=== PATIENT | male | born 1935 | race Caucasian/White ===

== ENCOUNTER 2018-06-14 09:20 | Inpatient (IN) | payer MEDICARE ==
[2018-06-14 10:02] VITALS: BP 144/73
[2018-06-14] MEDS ORDERED: Maalox 30 mL Cup PO PRN (10:13)
[2018-06-14] MEDS ORDERED: Magnesium Hydroxide (MOM) 30 mL UDC PO PRN (10:13)
[2018-06-14] MEDS ORDERED: Pneumococcal Vaccine 0.5 mL Vial IM ONE (11:28)
[2018-06-14 12:24] LABS: CHOLESTEROL 123 mg/dL (<200); HDL -HIGH DENSITY LIPOPROTEIN 46 mg/dL (23-92); TRIGLYCERIDES 82 mg/dL (<150)
--- NOTE | 2018-06-14 18:21 | Consultation ---
DATE OF CONSULTATION: INTERNAL MEDICINE CONSULTATION REFERRING PHYSICIAN: Dr. Polo. REASON FOR CONSULT: Medical management. HISTORY OF PRESENT ILLNESS: The patient is an 82-year-old male with history of combat related PTSD, dementia, history of ETOH, subclinical hypothyroidism, BPH, hyperlipidemia, who was seen at [facility] for psych decompensation. The patient apparently had exacerbation of his PTSD and was also noted to have anterior neck lacerations, which have been sutured. Per records, he apparently had suicidal thoughts, which he currently denies. He states that he accidentally cut himself with a barbed wire. He is currently comfortable, lying in bed with no complaints. He is somewhat of a poor historian, stating that he has no medical problems. He has been admitted to [facility] for further management and care. PAST MEDICAL HISTORY: As noted above. PAST SURGICAL HISTORY: Denies. FAMILY HISTORY: Noncontributory to his admission. SOCIAL HISTORY: There is alcohol abuse per records. No cigarette smoking at this time, but the patient does have a longstanding history of previous cigarette smoking. He quit about 30 years ago. Denies illicit drug usage. ALLERGIES: NKDA. OUTPATIENT MEDICATIONS: Aspirin 81 every day, Aricept 10 every day, Cardura 2 mg at bedtime, Proscar 5 mg every day, Lasix 20 mg every day, Synthroid 0.025 mg daily, Namenda 5 mg daily and Remeron 30 mg at bedtime. REVIEW OF SYSTEMS: CONSTITUTIONAL: He denies any fever, chills. No recent weight loss. CARDIOVASCULAR: No chest pain or palpitations. PULMONARY: No cough, no phlegm production, no shortness of breath. GASTROINTESTINAL: No bowel habit changes. GENITOURINARY: No bladder habit changes. NEUROLOGIC: No changes in vision, no headaches. Denies any syncopal episodes. PHYSICAL EXAMINATION: VITAL SIGNS: Pulse 68, respirations 18, temperature 97.9, BP 144/73. GENERAL: A well-developed, well-nourished male, awake, in no obvious distress. HEAD AND NECK: The head is normocephalic, atraumatic. There are 2 large lacerations on the left anterior neck that appeared to have been done with a thin blade instrument. There are fine sutures in place. There is no noticeable bleeding. CARDIAC: Regular rate and rhythm without any murmurs. LUNGS: Diminished at the bases, but clear to auscultation bilaterally. ABDOMEN: Soft, supple, nontender, nondistended, normoactive bowel sounds. LOWER EXTREMITIES: No pedal edema. LABORATORY DATA: From I white count 7.4, H and H 13/39 with a platelet count of 164. Sodium 139, potassium 5.0, chloride 106, CO2 of 29, glucose 95, BUN 33, creatinine 1.5. UA was within normal limits. ASSESSMENT: 1. Acute psych decompensation. 2. History of combat related posttraumatic stress disorder. 3. Self-inflicted anterior neck laceration, status post closure with sutures. 4. Major depressive disorder. 5. Adjustment disorder. 6. Alzheimer dementia per history. 7. Essential hypertension. 8. Subclinical hypothyroidism. 9. Hyperlipidemia. 10. History of benign prostatic hypertrophy. PLAN: The patient has been admitted to the [facility] for management and care. The patient will be kept on his current medications as scheduled and will ask for a lipid panel in the a.m. JOB# [id number] [facility]
[2018-06-15] MEDS: Levothyroxine 0.025 Mg Tab PO SCH (06:31)
[2018-06-15] MEDS: Multivitamin Tab PO SCH (09:00)
[2018-06-15] MEDS: Aspirin 81mg Chewable Tab PO SCH (09:01)
--- NOTE | 2018-06-15 22:34 | Internal Medicine Prog Note ---
Internal Medicine Subjective - Subjective Service Date: 06/15/18 (NO MAJOR EVENTS REPORTED BY STAFF) Patient seen and examined:: chart reviewed Patient is:: awake Per staff patient has:: no adverse event Internal Medicine Objective - Results Recent Labs: Laboratory Last Values POC Glucose 109 MG/DL (70 - 105) H 06/14/18 11:22 Triglycerides 82 mg/dL (<150) 06/14/18 11:30 Cholesterol 123 mg/dL (<200) 06/14/18 11:30 LDL Cholesterol Direct 62 mg/dL (75-193) L 06/14/18 11:30 HDL Cholesterol 46 mg/dL (23-92) 06/14/18 11:30 TSH 4.87 uIU/ml (0.34-5.60) 06/14/18 11:30 - Physical Exam Vitals and I&O: Vital Signs Temp 98.2 F 06/15/18 20:00 Pulse 82 06/15/18 20:00 Resp 19 06/15/18 20:00 BP 85/49 06/15/18 20:00 Pulse Ox 93 06/15/18 20:00 Intake & Output 06/15/18 06/15/18 06/16/18 06:59 18:59 06:59 Intake Total 450 Balance 450 Intake: Oral 450 Other: # Voids 3 Active Medications: Current Medications Acetaminophen (Tylenol) 650 mg PO Q4HR PRN PRN Reason: Mild Pain / Temp above 100 Stop: 08/13/18 10:12 Al Hydrox/Mg Hydrox/Simethicone (Maalox) 30 ml PO Q4HR PRN PRN Reason: GI DISTRESS Stop: 08/13/18 10:12 Aspirin (Aspirin Chewable) 81 mg PO DAILY [facility] Stop: 08/14/18 08:59 Last Admin: 06/15/18 09:01 Dose: 81 mg Donepezil HCl (Aricept) 10 mg PO HS [facility] Stop: 08/13/18 20:59 Last Admin: 06/15/18 21:00 Dose: 10 mg Doxazosin Mesylate (Cardura) 8 mg PO HS [facility] Stop: 08/13/18 20:59 Last Admin: 06/15/18 21:00 Dose: 8 mg Escitalopram Oxalate (Lexapro) 10 mg PO HS [facility]; Protocol Stop: 08/14/18 20:59 Last Admin: 06/15/18 21:00 Dose: 10 mg Finasteride (Proscar) 5 mg PO DAILY [facility]; Protocol Stop: 08/14/18 08:59 Last Admin: 06/15/18 09:00 Dose: 5 mg Furosemide (Lasix) 20 mg PO DAILY [facility] Stop: 08/14/18 08:59 Last Admin: 06/15/18 09:01 Dose: 20 mg Levothyroxine Sodium (Synthroid) 0.025 mg PO QDAC [facility] Stop: 08/14/18 07:29 Last Admin: 06/15/18 06:31 Dose: 0.025 mg Lorazepam (Ativan) 0.5 mg PO Q4HR PRN; Protocol PRN Reason: Anxiety Stop: 08/13/18 10:21 Magnesium Hydroxide (Milk Of Magnesia) 30 ml PO HS PRN PRN Reason: Constipation Memantine (Namenda) 5 mg PO DAILY [facility] Stop: 08/14/18 08:59 Last Admin: 06/15/18 09:00 Dose: 5 mg Mirtazapine (Remeron) 30 mg PO HS [facility] Stop: 08/13/18 20:59 Last Admin: 06/15/18 21:00 Dose: 30 mg Multivitamins/Vitamin C (Theragran) 1 tab PO DAILY [facility] Stop: 08/14/18 08:59 Last Admin: 06/15/18 09:00 Dose: 1 tab Zolpidem Tartrate (Ambien) 5 mg PO HS PRN PRN Reason: Insomnia Stop: 08/13/18 10:12 General: alert HEENT: PERRLA, EOMI Neck: Supple, No JVD, No LAD, other Lungs: CTAB Cardiovascular: RRR, Normal S1, Normal S2, without murmur Abdomen: soft, non-tender, positive bowel sound Extremities: clear Internal Medicine Assmt/Plan - Assessment Assessment: ACUTE PSYCH DECOMPENSATION HX OF COMBAT RELATED POST TRAUMATIC STRESS SYNDROME HISTORY OF DEMENTIA WITH BEHAVIORAL D/O SELF INFLICTED NECK LACERATIONS-s/p sutures HX OF SUBCLINICAL HYPOTHYROIDISM HX OF HTN-stable. HX OF BPH HX OF ETOH-no s/sx of withdrawals - Plan Plan: CONT WITH CURRENT INPT PSYCH SUPPORTIVE CARE AND MGT CONT WITH SYNTHOID, F/U THYROID STUDIES CONT WITH ARICEPT/NAMENDA CONT WITH CARDURA/PROSCAR MONITOR BP
[2018-06-16] MEDS: Levothyroxine 0.025 Mg Tab PO SCH (06:40)
[2018-06-16] MEDS: Multivitamin Tab PO SCH (09:29)
[2018-06-16] MEDS: Aspirin 81mg Chewable Tab PO SCH (09:29)
--- NOTE | 2018-06-16 12:32 | Internal Medicine Prog Note ---
Internal Medicine Subjective - Subjective Service Date: 06/16/18 (NO EVENTS) Patient seen and examined:: without staff Patient is:: awake Per staff patient has:: no adverse event Internal Medicine Objective - Results Recent Labs: Laboratory Last Values POC Glucose 109 MG/DL (70 - 105) H 06/14/18 11:22 Triglycerides 82 mg/dL (<150) 06/14/18 11:30 Cholesterol 123 mg/dL (<200) 06/14/18 11:30 LDL Cholesterol Direct 62 mg/dL (75-193) L 06/14/18 11:30 HDL Cholesterol 46 mg/dL (23-92) 06/14/18 11:30 Free T4 0.91 ng/dL (0.82-1.77) 06/14/18 11:30 TSH 4.87 uIU/ml (0.34-5.60) 06/14/18 11:30 - Physical Exam Vitals and I&O: Vital Signs Temp 98.2 F 06/15/18 20:00 Pulse 82 06/15/18 20:00 Resp 19 06/15/18 20:00 BP 136/79 06/16/18 09:29 Pulse Ox 93 06/15/18 20:00 Active Medications: Current Medications Acetaminophen (Tylenol) 650 mg PO Q4HR PRN PRN Reason: Mild Pain / Temp above 100 Stop: 08/13/18 10:12 Al Hydrox/Mg Hydrox/Simethicone (Maalox) 30 ml PO Q4HR PRN PRN Reason: GI DISTRESS Stop: 08/13/18 10:12 Aspirin (Aspirin Chewable) 81 mg PO DAILY [facility] Stop: 08/14/18 08:59 Last Admin: 06/16/18 09:29 Dose: 81 mg Donepezil HCl (Aricept) 10 mg PO HS [facility] Stop: 08/13/18 20:59 Last Admin: 06/15/18 21:00 Dose: 10 mg Doxazosin Mesylate (Cardura) 8 mg PO HS [facility] Stop: 08/13/18 20:59 Last Admin: 06/15/18 21:00 Dose: 8 mg Escitalopram Oxalate (Lexapro) 10 mg PO HS [facility]; Protocol Stop: 08/14/18 20:59 Last Admin: 06/15/18 21:00 Dose: 10 mg Finasteride (Proscar) 5 mg PO DAILY [facility]; Protocol Stop: 08/14/18 08:59 Last Admin: 06/16/18 09:30 Dose: 5 mg Furosemide (Lasix) 20 mg PO DAILY [facility] Stop: 08/14/18 08:59 Last Admin: 06/16/18 09:29 Dose: 20 mg Levothyroxine Sodium (Synthroid) 0.025 mg PO QDAC [facility] Stop: 08/14/18 07:29 Last Admin: 06/16/18 06:40 Dose: 0.025 mg Lorazepam (Ativan) 0.5 mg PO Q4HR PRN; Protocol PRN Reason: Anxiety Stop: 08/13/18 10:21 Magnesium Hydroxide (Milk Of Magnesia) 30 ml PO HS PRN PRN Reason: Constipation Memantine (Namenda) 5 mg PO BID [facility] Stop: 08/15/18 08:59 Mirtazapine (Remeron) 15 mg PO HS [facility] Stop: 08/15/18 20:59 Multivitamins/Vitamin C (Theragran) 1 tab PO DAILY [facility] Stop: 08/14/18 08:59 Last Admin: 06/16/18 09:29 Dose: 1 tab Zolpidem Tartrate (Ambien) 5 mg PO HS PRN PRN Reason: Insomnia Stop: 08/13/18 10:12 General: alert HEENT: PERRLA, EOMI Neck: Supple, No JVD, No LAD, other Lungs: CTAB Cardiovascular: RRR, Normal S1, Normal S2, without murmur Abdomen: soft, non-tender, positive bowel sound Extremities: clear Neurological: no change Internal Medicine Assmt/Plan - Assessment Assessment: ACUTE PSYCH DECOMPENSATION 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 HX OF BPH HX OF ETOH-no s/sx of withdrawals - Plan Plan: CONT WITH CURRENT INPT PSYCH SUPPORTIVE CARE AND MGT CONT WITH SYNTHOID-adjusted. CONT WITH ARICEPT/NAMENDA CONT WITH CARDURA/PROSCAR MONITOR BP
--- NOTE | 2018-06-17 00:51 | Psychiatric Evaluation ---
DATE OF SERVICE: INITIAL EVALUATION AND MENTAL STATUS EXAM PATIENT'S AGE: 82. SEX: Male. PHYSICIAN: Dr. Polo. CHIEF COMPLAINT: Depression and suicidal attempt. HISTORY OF PRESENT ILLNESS: The patient is an 82-year-old male, who tried to kill himself by cutting his throat and the patient was in [facility] for treatment and got stitches in his neck. The patient has been depressed and has history of depression and has been taking Remeron, Aricept, and Namenda. During my interview, the patient is guarded and he did not answer much of the questions except "I am very depressed" and I do not know why. Otherwise, most of his questions was guarded and was with lack of information. PAST PSYCHIATRIC HISTORY: The patient has history of depression. PAST MEDICAL HISTORY: The patient has history of hypertension and dementia. SOCIAL HISTORY: The patient is and lives with his . He is retired. He has history of heavy drinking. Otherwise, no drug use. ALLERGIES: No known allergies. MENTAL STATUS EXAMINATION: The patient appears older than stated age. Sad affect. In a depressed mood. Cooperative. The patient denied any hallucinations or delusions. He admits suicidal ideations with plan, but denies any homicidal ideations. The patient is alert and oriented to time, place, person, and situation. Intact immediate, recent and remote memories. Fair insight, but poor judgment. Seems to be of average intelligence based on his verbal ability. ASSESSMENT: PRIMARY DIAGNOSIS: Major depression, severe, recurrent, without psychotic features. TREATMENT PLAN: We will monitor the patient closely because of his depression and suicidal ideations. We will start individual as well as milieu psychotherapy. We will monitor psychotropic medications. ESTIMATED LENGTH OF STAY: 5-7 days. THE PATIENT'S STRENGTHS AND WEAKNESSES: The patient's strength is not clear at this time except he has a family. Weakness is his ineffective coping and suicidal attempt. AFTER DISCHARGE PLAN: The patient most probably will return to his with outpatient treatment. CRITERIA FOR DISCHARGE: The patient will not be suicidal and we will stabilize psychotropic medications and we will establish outpatient treatment plans. [facility]# [id number]
--- NOTE | 2018-06-17 02:43 | Progress Notes ---
DATE: SUBJECTIVE: Chart reviewed and the patient interviewed. Also discussed the patient's condition with the staff and reviewed records and labs. The patient is still severely depressed and also seems to be preoccupied. The patient also is still feeling hopeless and helpless and "depressed." Also show psychomotor retardation and slow in his movements and needs to be monitored closely. Also, still have thoughts of suicide with plan to cut his throat. ASSESSMENT: The patient is still severely depressed. TREATMENT PLAN: We will add Lexapro in a dose of 10 mg at bedtime. Also, we will decrease Remeron to 15 mg at bedtime and will continue to follow up. JOB# [id number]
[2018-06-17] MEDS: Levothyroxine 0.05 Mg Tab PO SCH (06:47)
[2018-06-17] MEDS: Aspirin 81mg Chewable Tab PO SCH (08:53)
[2018-06-17] MEDS: Multivitamin Tab PO SCH (08:53)
--- NOTE | 2018-06-17 20:56 | Internal Medicine Prog Note ---
Internal Medicine Subjective - Subjective Service Date: 06/17/18 (no events) Patient seen and examined:: without staff Patient is:: awake Per staff patient has:: no adverse event Internal Medicine Objective - Results Recent Labs: Laboratory Last Values POC Glucose 109 MG/DL (70 - 105) H 06/14/18 11:22 Triglycerides 82 mg/dL (<150) 06/14/18 11:30 Cholesterol 123 mg/dL (<200) 06/14/18 11:30 LDL Cholesterol Direct 62 mg/dL (75-193) L 06/14/18 11:30 HDL Cholesterol 46 mg/dL (23-92) 06/14/18 11:30 Free T4 0.91 ng/dL (0.82-1.77) 06/14/18 11:30 TSH 4.87 uIU/ml (0.34-5.60) 06/14/18 11:30 - Physical Exam Vitals and I&O: Vital Signs Temp 98.3 F 06/17/18 14:00 Pulse 62 06/17/18 14:00 Resp 20 06/17/18 14:00 BP 110/64 06/17/18 14:00 Pulse Ox 96 06/17/18 14:00 Intake & Output 06/17/18 06/17/18 06/18/18 06:59 18:59 06:59 Intake Total 480 1000 Balance 480 1000 Intake: Oral 480 1000 Other: # Voids 1 4 # Bowel Movements 1 Active Medications: Current Medications Acetaminophen (Tylenol) 650 mg PO Q4HR PRN PRN Reason: Mild Pain / Temp above 100 Stop: 08/13/18 10:12 Al Hydrox/Mg Hydrox/Simethicone (Maalox) 30 ml PO Q4HR PRN PRN Reason: GI DISTRESS Stop: 08/13/18 10:12 Aripiprazole (Abilify) 5 mg PO DAILY [facility]; Protocol Stop: 08/17/18 08:59 Aspirin (Aspirin Chewable) 81 mg PO DAILY [facility] Stop: 08/14/18 08:59 Last Admin: 06/17/18 08:53 Dose: 81 mg Donepezil HCl (Aricept) 10 mg PO HS [facility] Stop: 08/13/18 20:59 Last Admin: 06/17/18 20:40 Dose: 10 mg Doxazosin Mesylate (Cardura) 8 mg PO HS [facility] Stop: 08/13/18 20:59 Last Admin: 06/17/18 20:40 Dose: 8 mg Escitalopram Oxalate (Lexapro) 10 mg PO HS [facility]; Protocol Stop: 08/14/18 20:59 Last Admin: 06/17/18 20:40 Dose: 10 mg Finasteride (Proscar) 5 mg PO DAILY [facility]; Protocol Stop: 08/14/18 08:59 Last Admin: 06/17/18 08:54 Dose: 5 mg Furosemide (Lasix) 20 mg PO DAILY [facility] Stop: 08/14/18 08:59 Last Admin: 06/17/18 08:54 Dose: 20 mg Levothyroxine Sodium (Synthroid) 0.05 mg PO QDAC [facility] Stop: 08/16/18 07:29 Last Admin: 06/17/18 06:47 Dose: 0.05 mg Lorazepam (Ativan) 0.5 mg PO Q4HR PRN; Protocol PRN Reason: Anxiety Stop: 08/13/18 10:21 Magnesium Hydroxide (Milk Of Magnesia) 30 ml PO HS PRN PRN Reason: Constipation Memantine (Namenda) 5 mg PO BID [facility] Stop: 08/15/18 08:59 Last Admin: 06/17/18 16:27 Dose: 5 mg Mirtazapine (Remeron) 15 mg PO HS [facility] Stop: 08/15/18 20:59 Last Admin: 06/17/18 20:40 Dose: 15 mg Multivitamins/Vitamin C (Theragran) 1 tab PO DAILY [facility] Stop: 08/14/18 08:59 Last Admin: 06/17/18 08:53 Dose: 1 tab Zolpidem Tartrate (Ambien) 5 mg PO HS PRN PRN Reason: Insomnia Stop: 08/13/18 10:12 Last Admin: 06/16/18 21:36 Dose: 5 mg General: alert HEENT: PERRLA, EOMI Neck: Supple, No JVD, No LAD, other Lungs: CTAB Cardiovascular: RRR, Normal S1, Normal S2, without murmur Abdomen: soft, non-tender, positive bowel sound Extremities: clear Neurological: no change Internal Medicine Assmt/Plan - Assessment Assessment: ACUTE PSYCH DECOMPENSATION 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 HX OF BPH HX OF ETOH-no s/sx of withdrawals - Plan Plan: CONT WITH CURRENT INPT PSYCH SUPPORTIVE CARE AND MGT CONT WITH SYNTHOID-adjusted. CONT WITH ARICEPT/NAMENDA CONT WITH CARDURA/PROSCAR MONITOR BP
--- NOTE | 2018-06-18 02:41 | Progress Notes ---
DATE: 06/17/[address] Polo. SUBJECTIVE: Case was discussed with staff of the patient and reviewed records. This is an 82-year-old male, who was admitted on 06/14/2018 because of depression and suicide attempt. He tried to kill himself by cutting his throat and the patient was in [facility]. He got stitches on his neck. Has been depressed with a history of depression. He is on Remeron, Aricept, Namenda. The patient was guarded and did not answer much of the questions and very depressed and do not why' otherwise, no suspicious, guarded. The patient also with a history of dementia. The patient continues to isolate himself, guarded. He is on Aricept 10 mg at bedtime, Lexapro 10 mg at bedtime and because of severity of her depression, I will be adding Abilify to his medication, also on Remeron as well as Namenda 5 mg twice a day. So Abilify will be added to help decrease his depressive symptoms. We will continue outpatient group therapy, milieu therapy, adjust the medication as needed. JOB# [id number]
[2018-06-18] MEDS: Levothyroxine 0.05 Mg Tab PO SCH (06:39)
[2018-06-18] MEDS: Aspirin 81mg Chewable Tab PO SCH (08:20)
[2018-06-18] MEDS: Multivitamin Tab PO SCH (08:20)
--- NOTE | 2018-06-18 20:25 | Progress Notes ---
DATE: 06/18/2018 DATE OF SERVICE: 06/18/2018 An 82-year-old male, tried to kill himself, cut his throat. It is clear where he cut his throat. He has stitches on his neck. Ongoing depression, isolation, melancholy. Noting he is feeling mildly better, no longer wanting to cut his neck, but feeling "despondent". Staff concerned because he isolates. He knows the year and not quite sure about the month. He would like to go back home with . Not exactly sure of the 's whereabouts. Fair sleep, fair appetite. MEDICATIONS: Noted. ASSESSMENT: The patient remains depressed, melancholic, ongoing concerns that he may try to hurt himself. We will continue to monitor. Continue inpatient hospitalization. JOB# [id number]
[2018-06-19] MEDS: Levothyroxine 0.05 Mg Tab PO SCH (06:52)
--- NOTE | 2018-06-19 08:39 | Progress Notes ---
DATE: 06/19/2018 DATE OF SERVICE: 06/19/2018 SUBJECTIVE: The patient is currently in the hospital, status post suicide attempt, preoccupied, generally confused, forgetful, states his is going to pick him up. Slept for about 6 hours, depressed, withdrawn, mostly keeps to himself, isolative, ongoing periods of forgetfulness, ongoing concerns that he may act out upon his impulses, harm self given that he is still depressed, withdrawn. We will continue to monitor. Concerns about safety. would like the patient back home with them. It seems that the is able to help take care of him, but he is generally independent. JOB# [id number]
[2018-06-19] MEDS: Multivitamin Tab PO SCH (09:25)
[2018-06-19] MEDS: Aspirin 81mg Chewable Tab PO SCH (09:25)
--- NOTE | 2018-06-19 17:07 | Internal Medicine Prog Note ---
Internal Medicine Subjective - Subjective Service Date: 06/19/18 (comfortable) Patient seen and examined:: without staff Patient is:: awake Per staff patient has:: no adverse event Internal Medicine Objective - Results Recent Labs: Laboratory Last Values POC Glucose 109 MG/DL (70 - 105) H 06/14/18 11:22 Triglycerides 82 mg/dL (<150) 06/14/18 11:30 Cholesterol 123 mg/dL (<200) 06/14/18 11:30 LDL Cholesterol Direct 62 mg/dL (75-193) L 06/14/18 11:30 HDL Cholesterol 46 mg/dL (23-92) 06/14/18 11:30 Free T4 0.91 ng/dL (0.82-1.77) 06/14/18 11:30 TSH 4.87 uIU/ml (0.34-5.60) 06/14/18 11:30 - Physical Exam Vitals and I&O: Vital Signs Temp 97.5 F 06/19/18 16:18 Pulse 66 06/19/18 16:18 Resp 20 06/19/18 16:18 BP 111/62 06/19/18 16:18 Pulse Ox 91 06/19/18 16:18 Intake & Output 06/18/18 06/19/18 06/19/18 18:59 06:59 18:59 Intake Total 900 120 Balance 900 120 Intake: Oral 900 120 Other: # Voids 3 3 # Bowel Movements 1 Active Medications: Current Medications Acetaminophen (Tylenol) 650 mg PO Q4HR PRN PRN Reason: Mild Pain / Temp above 100 Stop: 08/13/18 10:12 Al Hydrox/Mg Hydrox/Simethicone (Maalox) 30 ml PO Q4HR PRN PRN Reason: GI DISTRESS Stop: 08/13/18 10:12 Aripiprazole (Abilify) 5 mg PO DAILY [facility]; Protocol Stop: 08/17/18 08:59 Last Admin: 06/19/18 09:23 Dose: 5 mg Aspirin (Aspirin Chewable) 81 mg PO DAILY [facility] Stop: 08/14/18 08:59 Last Admin: 06/19/18 09:25 Dose: 81 mg Donepezil HCl (Aricept) 10 mg PO HS [facility] Stop: 08/13/18 20:59 Last Admin: 06/18/18 21:53 Dose: 10 mg Doxazosin Mesylate (Cardura) 8 mg PO HS [facility] Stop: 08/13/18 20:59 Last Admin: 06/18/18 21:54 Dose: 8 mg Escitalopram Oxalate (Lexapro) 10 mg PO HS [facility]; Protocol Stop: 08/14/18 20:59 Last Admin: 06/18/18 21:54 Dose: 10 mg Finasteride (Proscar) 5 mg PO DAILY [facility]; Protocol Stop: 08/14/18 08:59 Last Admin: 06/19/18 09:23 Dose: 5 mg Furosemide (Lasix) 20 mg PO DAILY [facility] Stop: 08/14/18 08:59 Last Admin: 06/19/18 09:24 Dose: 20 mg Levothyroxine Sodium (Synthroid) 0.05 mg PO QDAC [facility] Stop: 08/16/18 07:29 Last Admin: 06/19/18 06:52 Dose: 0.05 mg Lorazepam (Ativan) 0.5 mg PO Q4HR PRN; Protocol PRN Reason: Anxiety Stop: 08/13/18 10:21 Magnesium Hydroxide (Milk Of Magnesia) 30 ml PO HS PRN PRN Reason: Constipation Memantine (Namenda) 5 mg PO BID [facility] Stop: 08/15/18 08:59 Last Admin: 06/19/18 09:25 Dose: 5 mg Mirtazapine (Remeron) 15 mg PO HS [facility] Stop: 08/15/18 20:59 Last Admin: 06/18/18 21:54 Dose: 15 mg Multivitamins/Vitamin C (Theragran) 1 tab PO DAILY [facility] Stop: 08/14/18 08:59 Last Admin: 06/19/18 09:25 Dose: 1 tab Zolpidem Tartrate (Ambien) 5 mg PO HS PRN PRN Reason: Insomnia Stop: 08/13/18 10:12 Last Admin: 06/16/18 21:36 Dose: 5 mg General: alert HEENT: PERRLA, EOMI Neck: Supple, No JVD, No LAD, other Lungs: CTAB Cardiovascular: RRR, Normal S1, Normal S2, without murmur Abdomen: soft, non-tender, positive bowel sound Extremities: clear Neurological: no change Internal Medicine Assmt/Plan - Assessment Assessment: ACUTE PSYCH DECOMPENSATION 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 HX OF BPH HX OF ETOH-no s/sx of withdrawals - Plan Plan: CONT WITH CURRENT INPT PSYCH SUPPORTIVE CARE AND MGT CONT WITH SYNTHOID-adjusted. CONT WITH ARICEPT/NAMENDA CONT WITH CARDURA/PROSCAR MONITOR BP
[2018-06-20] MEDS: Levothyroxine 0.05 Mg Tab PO SCH (07:52)
[2018-06-20] MEDS: Multivitamin Tab PO SCH (09:00)
[2018-06-20] MEDS: Aspirin 81mg Chewable Tab PO SCH (09:00)
--- NOTE | 2018-06-20 09:12 | Internal Medicine Prog Note ---
Internal Medicine Subjective - Subjective Service Date: 06/20/18 (comfortable) Patient seen and examined:: without staff Patient is:: awake Per staff patient has:: no adverse event Internal Medicine Objective - Results Recent Labs: Laboratory Last Values POC Glucose 109 MG/DL (70 - 105) H 06/14/18 11:22 Triglycerides 82 mg/dL (<150) 06/14/18 11:30 Cholesterol 123 mg/dL (<200) 06/14/18 11:30 LDL Cholesterol Direct 62 mg/dL (75-193) L 06/14/18 11:30 HDL Cholesterol 46 mg/dL (23-92) 06/14/18 11:30 Free T4 0.91 ng/dL (0.82-1.77) 06/14/18 11:30 TSH 4.87 uIU/ml (0.34-5.60) 06/14/18 11:30 - Physical Exam Vitals and I&O: Vital Signs Temp 97.9 F 06/20/18 06:14 Pulse 60 06/20/18 06:14 Resp 18 06/20/18 06:14 BP 114/72 06/20/18 09:00 Pulse Ox 97 06/20/18 06:14 Intake & Output 06/19/18 06/20/18 06/20/18 18:59 06:59 18:59 Intake Total 240 Balance 240 Intake: Oral 240 Other: # Voids 2 Active Medications: Current Medications Acetaminophen (Tylenol) 650 mg PO Q4HR PRN PRN Reason: Mild Pain / Temp above 100 Stop: 08/13/18 10:12 Al Hydrox/Mg Hydrox/Simethicone (Maalox) 30 ml PO Q4HR PRN PRN Reason: GI DISTRESS Stop: 08/13/18 10:12 Aripiprazole (Abilify) 5 mg PO DAILY [facility]; Protocol Stop: 08/17/18 08:59 Last Admin: 06/20/18 09:00 Dose: 5 mg Aspirin (Aspirin Chewable) 81 mg PO DAILY [facility] Stop: 08/14/18 08:59 Last Admin: 06/20/18 09:00 Dose: 81 mg Donepezil HCl (Aricept) 10 mg PO HS [facility] Stop: 08/13/18 20:59 Last Admin: 06/19/18 20:32 Dose: 10 mg Doxazosin Mesylate (Cardura) 8 mg PO HS [facility] Stop: 08/13/18 20:59 Last Admin: 06/19/18 20:32 Dose: 8 mg Escitalopram Oxalate (Lexapro) 10 mg PO HS [facility]; Protocol Stop: 08/14/18 20:59 Last Admin: 06/19/18 20:32 Dose: 10 mg Finasteride (Proscar) 5 mg PO DAILY [facility]; Protocol Stop: 08/14/18 08:59 Last Admin: 06/20/18 09:00 Dose: 5 mg Furosemide (Lasix) 20 mg PO DAILY [facility] Stop: 08/14/18 08:59 Last Admin: 06/20/18 09:00 Dose: 20 mg Levothyroxine Sodium (Synthroid) 0.05 mg PO QDAC [facility] Stop: 08/16/18 07:29 Last Admin: 06/20/18 07:52 Dose: 0.05 mg Lorazepam (Ativan) 0.5 mg PO Q4HR PRN; Protocol PRN Reason: Anxiety Stop: 08/13/18 10:21 Magnesium Hydroxide (Milk Of Magnesia) 30 ml PO HS PRN PRN Reason: Constipation Memantine (Namenda) 5 mg PO BID [facility] Stop: 08/15/18 08:59 Last Admin: 06/20/18 09:00 Dose: 5 mg Mirtazapine (Remeron) 15 mg PO HS [facility] Stop: 08/15/18 20:59 Last Admin: 06/19/18 20:32 Dose: 15 mg Multivitamins/Vitamin C (Theragran) 1 tab PO DAILY [facility] Stop: 08/14/18 08:59 Last Admin: 06/20/18 09:00 Dose: 1 tab Zolpidem Tartrate (Ambien) 5 mg PO HS PRN PRN Reason: Insomnia Stop: 08/13/18 10:12 Last Admin: 06/19/18 20:32 Dose: 5 mg General: alert HEENT: PERRLA, EOMI Neck: Supple, No JVD, No LAD, other Lungs: CTAB Cardiovascular: RRR, Normal S1, Normal S2, without murmur Abdomen: soft, non-tender, positive bowel sound Extremities: clear Neurological: no change Internal Medicine Assmt/Plan - Assessment Assessment: ACUTE PSYCH DECOMPENSATION 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 HX OF BPH HX OF ETOH-no s/sx of withdrawals - Plan Plan: CONT WITH CURRENT INPT PSYCH SUPPORTIVE CARE AND MGT CONT WITH SYNTHOID-adjusted. CONT WITH ARICEPT/NAMENDA CONT WITH CARDURA/PROSCAR MONITOR BP
--- NOTE | 2018-06-21 04:24 | Progress Notes ---
DATE: 06/20/2018 Case was discussed with staff of the patient, reviewed records. I also discussed the case with his family who happens to be there, his current , his older son and his [id number]. Also called Dr. Moore who has been treating the patient for the last 10 years at the [facility]. The patient suffers with PTSD and dementia. He has no prior suicide attempts. Family apparently, the woke up and found him after he cut himself and called 911. The patient is forgetful, was unable to identify his and his son, but he was able to tell me the date, where he is. He is sleeping well. He keeps himself isolative. The family is concerned for his safety. I discussed with them safety plan. Also discussed the medications that he is on basically. Then, I added Malinda when I first met him to make sure help with his depression. He is currently on Aricept 10 mg at bedtime. He is also on Lexapro. The family states he is taking medication for PTSD and they are not sure what it was. He is also on Remeron 15 mg at bedtime, Namenda 5 mg twice a day. I will be increasing his Lexapro to 50 mg a day. Also, the family would like for him to be transferred to the [facility], so I instructed the staff to work on the transmission and I talked to Dr. Moore who said that he did not see him, but they have a geriatric unit and that we need to call him to verify that they have a place. So far, no side effects with the medication, no sedation, no nausea, no extrapyramidal symptoms. The patient is currently denying any intent to harm self or anybody. I will continue with outpatient group therapy, milieu therapy, and adjust medication as needed. JOB# [id number]
[2018-06-21] MEDS: Levothyroxine 0.05 Mg Tab PO SCH (06:39)
[2018-06-21] MEDS: Aspirin 81mg Chewable Tab PO SCH (08:38)
[2018-06-21] MEDS: Multivitamin Tab PO SCH (08:38)
--- NOTE | 2018-06-21 11:00 | Internal Medicine Prog Note ---
Internal Medicine Subjective - Subjective Service Date: 06/21/18 (NO EVENTS) Patient seen and examined:: without staff Patient is:: awake Per staff patient has:: no adverse event Internal Medicine Objective - Results Recent Labs: Laboratory Last Values POC Glucose 109 MG/DL (70 - 105) H 06/14/18 11:22 Triglycerides 82 mg/dL (<150) 06/14/18 11:30 Cholesterol 123 mg/dL (<200) 06/14/18 11:30 LDL Cholesterol Direct 62 mg/dL (75-193) L 06/14/18 11:30 HDL Cholesterol 46 mg/dL (23-92) 06/14/18 11:30 Free T4 0.91 ng/dL (0.82-1.77) 06/14/18 11:30 TSH 4.87 uIU/ml (0.34-5.60) 06/14/18 11:30 - Physical Exam Vitals and I&O: Vital Signs Temp 98.7 F 06/21/18 05:43 Pulse 58 06/21/18 05:43 Resp 20 06/21/18 05:43 BP 112/65 06/21/18 08:37 Pulse Ox 95 06/21/18 05:43 Intake & Output 06/20/18 06/21/18 06/21/18 18:59 06:59 18:59 Intake Total 1000 120 Balance 1000 120 Intake: Oral 1000 120 Other: # Voids 4 3 # Bowel Movements 1 0 Active Medications: Current Medications Acetaminophen (Tylenol) 650 mg PO Q4HR PRN PRN Reason: Mild Pain / Temp above 100 Stop: 08/13/18 10:12 Al Hydrox/Mg Hydrox/Simethicone (Maalox) 30 ml PO Q4HR PRN PRN Reason: GI DISTRESS Stop: 08/13/18 10:12 Aripiprazole (Abilify) 5 mg PO DAILY [facility]; Protocol Stop: 08/17/18 08:59 Last Admin: 06/21/18 08:38 Dose: 5 mg Aspirin (Aspirin Chewable) 81 mg PO DAILY [facility] Stop: 08/14/18 08:59 Last Admin: 06/21/18 08:38 Dose: 81 mg Donepezil HCl (Aricept) 10 mg PO HS [facility] Stop: 08/13/18 20:59 Last Admin: 03/25/19 21:03 Dose: 10 mg Doxazosin Mesylate (Cardura) 8 mg PO HS [facility] Stop: 08/13/18 20:59 Last Admin: 06/20/18 21:02 Dose: 8 mg Escitalopram Oxalate (Lexapro) 15 mg PO HS [facility]; Protocol Stop: 08/19/18 20:59 Last Admin: 06/20/18 21:02 Dose: 15 mg Finasteride (Proscar) 5 mg PO DAILY [facility]; Protocol Stop: 08/14/18 08:59 Last Admin: 06/21/18 08:38 Dose: 5 mg Furosemide (Lasix) 20 mg PO DAILY [facility] Stop: 08/14/18 08:59 Last Admin: 06/21/18 08:37 Dose: 20 mg Levothyroxine Sodium (Synthroid) 0.05 mg PO QDAC [facility] Stop: 08/16/18 07:29 Last Admin: 06/21/18 06:39 Dose: 0.05 mg Lorazepam (Ativan) 0.5 mg PO Q4HR PRN; Protocol PRN Reason: Anxiety Stop: 08/13/18 10:21 Magnesium Hydroxide (Milk Of Magnesia) 30 ml PO HS PRN PRN Reason: Constipation Memantine (Namenda) 5 mg PO BID [facility] Stop: 08/15/18 08:59 Last Admin: 06/21/18 08:38 Dose: 5 mg Mirtazapine (Remeron) 15 mg PO HS [facility] Stop: 08/15/18 20:59 Last Admin: 06/20/18 21:02 Dose: 15 mg Multivitamins/Vitamin C (Theragran) 1 tab PO DAILY [facility] Stop: 08/14/18 08:59 Last Admin: 06/21/18 08:38 Dose: 1 tab Zolpidem Tartrate (Ambien) 5 mg PO HS PRN PRN Reason: Insomnia Stop: 08/13/18 10:12 Last Admin: 06/20/18 21:03 Dose: 5 mg General: alert HEENT: PERRLA, EOMI Neck: Supple, No JVD, No LAD, other Lungs: CTAB Cardiovascular: RRR, Normal S1, Normal S2, without murmur Abdomen: soft, non-tender, positive bowel sound Extremities: clear Neurological: no change Internal Medicine Assmt/Plan - Assessment Assessment: ACUTE PSYCH DECOMPENSATION 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 HX OF BPH HX OF ETOH-no s/sx of withdrawals - Plan Plan: CONT WITH CURRENT INPT PSYCH SUPPORTIVE CARE AND MGT CONT WITH SYNTHOID-adjusted. CONT WITH ARICEPT/NAMENDA CONT WITH CARDURA/PROSCAR MONITOR BP Nutritional Asmnt/Malnutr-PDOC - Dietary Evaluation Malnutrition Findings (Please click <Entered> for more info): Nutritional Asmnt/Malnutrition Start: 06/20/18 15: 10 Text: Status: Complete Freq: Protocol: Document 06/20/18 15:10 LCCONSUELOG (Rec: 06/20/18 15:17 CONSUELO [email or web address]) Nutritional Asmnt/Malnutrition Patient General Information Nutritional Screening Low Risk Diagnosis pyschosis Pertinent Medical Hx/Surgical Hx PTSD, dementia, ETOH, hypothyroidism, BPH, hyperlipidemia Subjective Information Pt seen in his room with family visiting. pt stated he has good appetite, food is good, no questions. Per EMR, PO intake 75-100%. Current Diet Order/ Nutrition Support regular Pertinent Medications lasix, synthroidm, remeron, theragran Pertinent Labs 06/14 POC 109 Nutritional Hx/Data Height 1.7 m Height (Calculated Centimeters) 170.2 Current Weight (lbs) 70.307 kg Weight (Calculated Kilograms) 70.3 Weight (Calculated Grams) 72598.8 [place] Body Weight 148 Body Mass Index (BMI) 24.3 Weight Status Approriate GI Symptoms GI Symptoms None Last BM 06/18 Difficult in: None Skin Integrity/Comment: laceration to neck gary 21 Current %PO Good (75-100%) Estimated Nutritional Goals BEE in Kcals: Using Current wt Calories/Kcals/Kg 25-30 Kcals Calculated 0151-4918 Protein: Using Current wt Protein g/k Protein Calculated 70 Fluid: ml 1750-2100ml (1ml/kcal) Nutritional Problem No current Nutrition Prob Problem N/A Malnutrition Alert Is there a minimum of two criteria No selected? Query Text:Check all the applicable criteria. A minimum of two criteria are recommended for diagnosis of either severe or non-severe malnutrition. Malnutrition Related to Morbid Obesity Malnutrition related to morbid obesity No Intervention/Recommendation Comments 1. Continue with regular diet as ordered. 2. Monitor PO intake, wt, labs and skin integrity 3. F/U as low risk in 7 days Expected Outcomes/Goals Expected Outcomes/Goals 1. PO intake to meet at least 75% of nutritional needs. 2. Wt stability, skin to remain intact, labs to approach WNL.
--- NOTE | 2018-06-22 00:36 | Progress Notes ---
DATE: 06/21/2018 SUBJECTIVE: Case was discussed with staff of the patient, reviewed records. The patient continues to be confused, demented. He continues to have poor insight about what led to his admission. His family wanted him to go to the [facility] and I talked to the shelter case manager yesterday to walk on it as they want him to be in the place where his doctor practices and he can talk to his treating psychiatrist there. The patient is sleeping well, eating well. He is compliant with the medication with no side effects, no sedation, no nausea, and no extrapyramidal symptoms. I increased his Lexapro dose yesterday and I added him on Abilify last week 5 mg daily. No side effects, no sedation, no nausea, and no extrapyramidal symptoms. His lab work is the only thing I have, his high blood sugar 109, lipid profile is within normal range, and TSH and T4 are within normal range. We will continue to work with the patient in group therapy, milieu therapy, and adjust the medications as needed. JOB# [id number]
[2018-06-22] MEDS: Levothyroxine 0.05 Mg Tab PO SCH (06:37)
[2018-06-22] MEDS: Multivitamin Tab PO SCH (09:02)
[2018-06-22] MEDS: Aspirin 81mg Chewable Tab PO SCH (09:02)
--- NOTE | 2018-06-22 09:23 | Internal Medicine Prog Note ---
Internal Medicine Subjective - Subjective Service Date: 06/22/18 (no acute changes noted) Patient seen and examined:: without staff Patient is:: awake Per staff patient has:: no adverse event Internal Medicine Objective - Results Recent Labs: Laboratory Last Values POC Glucose 109 MG/DL (70 - 105) H 06/14/18 11:22 Triglycerides 82 mg/dL (<150) 06/14/18 11:30 Cholesterol 123 mg/dL (<200) 06/14/18 11:30 LDL Cholesterol Direct 62 mg/dL (75-193) L 06/14/18 11:30 HDL Cholesterol 46 mg/dL (23-92) 06/14/18 11:30 Free T4 0.91 ng/dL (0.82-1.77) 06/14/18 11:30 TSH 4.87 uIU/ml (0.34-5.60) 06/14/18 11:30 - Physical Exam Vitals and I&O: Vital Signs Temp 98.4 F 06/22/18 06:37 Pulse 54 06/22/18 06:37 Resp 18 06/22/18 06:37 BP 118/70 06/22/18 09:02 Pulse Ox 100 06/22/18 06:37 Intake & Output 06/21/18 06/22/18 06/22/18 18:59 06:59 18:59 Intake Total 800 240 Balance 800 240 Intake: Oral 800 240 Other: # Voids 3 2 # Bowel Movements 1 0 Active Medications: Current Medications Acetaminophen (Tylenol) 650 mg PO Q4HR PRN PRN Reason: Mild Pain / Temp above 100 Stop: 08/13/18 10:12 Al Hydrox/Mg Hydrox/Simethicone (Maalox) 30 ml PO Q4HR PRN PRN Reason: GI DISTRESS Stop: 08/13/18 10:12 Aripiprazole (Abilify) 5 mg PO DAILY [facility]; Protocol Stop: 08/17/18 08:59 Last Admin: 06/22/18 09:02 Dose: 5 mg Aspirin (Aspirin Chewable) 81 mg PO DAILY [facility] Stop: 08/14/18 08:59 Last Admin: 06/22/18 09:02 Dose: 81 mg Donepezil HCl (Aricept) 10 mg PO HS [facility] Stop: 08/13/18 20:59 Last Admin: 06/21/18 20:59 Dose: 10 mg Doxazosin Mesylate (Cardura) 8 mg PO HS [facility] Stop: 08/13/18 20:59 Last Admin: 06/21/18 20:59 Dose: 8 mg Escitalopram Oxalate (Lexapro) 15 mg PO HS [facility]; Protocol Stop: 08/19/18 20:59 Last Admin: 06/21/18 20:58 Dose: 15 mg Finasteride (Proscar) 5 mg PO DAILY [facility]; Protocol Stop: 08/14/18 08:59 Last Admin: 06/22/18 09:02 Dose: 5 mg Furosemide (Lasix) 20 mg PO DAILY [facility] Stop: 08/14/18 08:59 Last Admin: 06/22/18 09:02 Dose: 20 mg Levothyroxine Sodium (Synthroid) 0.05 mg PO QDAC [facility] Stop: 08/16/18 07:29 Last Admin: 06/22/18 06:37 Dose: 0.05 mg Lorazepam (Ativan) 0.5 mg PO Q4HR PRN; Protocol PRN Reason: Anxiety Stop: 08/13/18 10:21 Magnesium Hydroxide (Milk Of Magnesia) 30 ml PO HS PRN PRN Reason: Constipation Memantine (Namenda) 5 mg PO BID [facility] Stop: 08/15/18 08:59 Last Admin: 06/22/18 09:02 Dose: 5 mg Mirtazapine (Remeron) 15 mg PO HS [facility] Stop: 08/15/18 20:59 Last Admin: 06/21/18 20:59 Dose: 15 mg Multivitamins/Vitamin C (Theragran) 1 tab PO DAILY [facility] Stop: 08/14/18 08:59 Last Admin: 06/22/18 09:02 Dose: 1 tab Zolpidem Tartrate (Ambien) 5 mg PO HS PRN PRN Reason: Insomnia Stop: 08/13/18 10:12 Last Admin: 06/20/18 21:03 Dose: 5 mg General: alert HEENT: PERRLA, EOMI Neck: Supple, No JVD, No LAD, other Lungs: CTAB Cardiovascular: RRR, Normal S1, Normal S2, without murmur Abdomen: soft, non-tender, positive bowel sound Extremities: clear Neurological: no change Internal Medicine Assmt/Plan - Assessment Assessment: ACUTE PSYCH DECOMPENSATION 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 HX OF BPH HX OF ETOH-no s/sx of withdrawals - Plan Plan: CONT WITH CURRENT INPT PSYCH SUPPORTIVE CARE AND MGT CONT WITH SYNTHOID-adjusted. CONT WITH ARICEPT/NAMENDA CONT WITH CARDURA/PROSCAR MONITOR BP Nutritional Asmnt/Malnutr-PDOC - Dietary Evaluation Malnutrition Findings (Please click <Entered> for more info): Nutritional Asmnt/Malnutrition Start: 06/20/18 15: 10 Text: Status: Complete Freq: Protocol: Document 06/20/18 15:10 LCCONSUELOG (Rec: 06/20/18 15:17 HAYDEE [email or web address]) Nutritional Asmnt/Malnutrition Patient General Information Nutritional Screening Low Risk Diagnosis pyschosis Pertinent Medical Hx/Surgical Hx PTSD, dementia, ETOH, hypothyroidism, BPH, hyperlipidemia Subjective Information Pt seen in his room with family visiting. pt stated he has good appetite, food is good, no questions. Per EMR, PO intake 75-100%. Current Diet Order/ Nutrition Support regular Pertinent Medications lasix, synthroidm, remeron, theragran Pertinent Labs 06/14 POC 109 Nutritional Hx/Data Height 1.7 m Height (Calculated Centimeters) 170.2 Current Weight (lbs) 70.307 kg Weight (Calculated Kilograms) 70.3 Weight (Calculated Grams) 59431.8 [place] Body Weight 148 Body Mass Index (BMI) 24.3 Weight Status Approriate GI Symptoms GI Symptoms None Last BM 06/18 Difficult in: None Skin Integrity/Comment: laceration to neck gary 21 Current %PO Good (75-100%) Estimated Nutritional Goals BEE in Kcals: Using Current wt Calories/Kcals/Kg 25-30 Kcals Calculated 1277-3340 Protein: Using Current wt Protein g/k Protein Calculated 70 Fluid: ml 1750-2100ml (1ml/kcal) Nutritional Problem No current Nutrition Prob Problem N/A Malnutrition Alert Is there a minimum of two criteria No selected? Query Text:Check all the applicable criteria. A minimum of two criteria are recommended for diagnosis of either severe or non-severe malnutrition. Malnutrition Related to Morbid Obesity Malnutrition related to morbid obesity No Intervention/Recommendation Comments 1. Continue with regular diet as ordered. 2. Monitor PO intake, wt, labs and skin integrity 3. F/U as low risk in 7 days Expected Outcomes/Goals Expected Outcomes/Goals 1. PO intake to meet at least 75% of nutritional needs. 2. Wt stability, skin to remain intact, labs to approach WNL.
--- NOTE | 2018-06-22 12:58 | Progress Notes ---
DATE: 06/22/2018 Case was discussed with staff of the patient, reviewed records. The patient continues to isolate himself in bed. He is not sure of the day. He is hard of hearing. He is minimizing any current intent to harm himself or anybody; however, he did have a serious suicide attempt by slashing his throat. He came out of nowhere according to the [facility] who [facility] and the pillowcase cleaner is working on it today. No side effects of the medication, no sedation, no nausea, no extrapyramidal symptoms. We will continue to work with the patient in group therapy, milieu therapy, and adjust the medications as needed. [facility]# [id number]
[2018-06-23] MEDS: Levothyroxine 0.05 Mg Tab PO SCH (06:35)
[2018-06-23] MEDS: Aspirin 81mg Chewable Tab PO SCH (09:31)
[2018-06-23] MEDS: Multivitamin Tab PO SCH (09:31)
--- NOTE | 2018-06-23 11:56 | Internal Medicine Prog Note ---
Internal Medicine Subjective - Subjective Service Date: 06/23/18 (COMFORTABLE) Patient seen and examined:: without staff Patient is:: awake Per staff patient has:: no adverse event Internal Medicine Objective - Results Recent Labs: Laboratory Last Values POC Glucose 109 MG/DL (70 - 105) H 06/14/18 11:22 Triglycerides 82 mg/dL (<150) 06/14/18 11:30 Cholesterol 123 mg/dL (<200) 06/14/18 11:30 LDL Cholesterol Direct 62 mg/dL (75-193) L 06/14/18 11:30 HDL Cholesterol 46 mg/dL (23-92) 06/14/18 11:30 Free T4 0.91 ng/dL (0.82-1.77) 06/14/18 11:30 TSH 4.87 uIU/ml (0.34-5.60) 06/14/18 11:30 - Physical Exam Vitals and I&O: Vital Signs Temp 97.2 F 06/23/18 05:28 Pulse 78 06/23/18 05:28 Resp 20 06/23/18 05:28 BP 116/68 06/23/18 05:28 Pulse Ox 93 06/23/18 05:28 Intake & Output 06/22/18 06/23/18 06/23/18 18:59 06:59 18:59 Intake Total 120 Balance 120 Intake: Oral 120 Other: # Voids 2 2 # Bowel Movements 0 0 Active Medications: Current Medications Acetaminophen (Tylenol) 650 mg PO Q4HR PRN PRN Reason: Mild Pain / Temp above 100 Stop: 08/13/18 10:12 Al Hydrox/Mg Hydrox/Simethicone (Maalox) 30 ml PO Q4HR PRN PRN Reason: GI DISTRESS Stop: 08/13/18 10:12 Aripiprazole (Abilify) 5 mg PO DAILY [facility]; Protocol Stop: 08/17/18 08:59 Last Admin: 06/23/18 09:31 Dose: 5 mg Aspirin (Aspirin Chewable) 81 mg PO DAILY [facility] Stop: 08/14/18 08:59 Last Admin: 06/23/18 09:31 Dose: 81 mg Donepezil HCl (Aricept) 10 mg PO HS [facility] Stop: 08/13/18 20:59 Last Admin: 06/22/18 20:41 Dose: 10 mg Doxazosin Mesylate (Cardura) 8 mg PO HS [facility] Stop: 08/13/18 20:59 Last Admin: 06/22/18 20:41 Dose: 8 mg Escitalopram Oxalate (Lexapro) 15 mg PO HS [facility]; Protocol Stop: 08/19/18 20:59 Last Admin: 06/22/18 20:42 Dose: 15 mg Finasteride (Proscar) 5 mg PO DAILY [facility]; Protocol Stop: 08/14/18 08:59 Last Admin: 06/23/18 09:31 Dose: 5 mg Furosemide (Lasix) 20 mg PO DAILY [facility] Stop: 08/14/18 08:59 Last Admin: 06/23/18 09:31 Dose: Not Given Levothyroxine Sodium (Synthroid) 0.05 mg PO QDAC [facility] Stop: 08/16/18 07:29 Last Admin: 06/23/18 06:35 Dose: 0.05 mg Lorazepam (Ativan) 0.5 mg PO Q4HR PRN; Protocol PRN Reason: Anxiety Stop: 08/13/18 10:21 Magnesium Hydroxide (Milk Of Magnesia) 30 ml PO HS PRN PRN Reason: Constipation Memantine (Namenda) 5 mg PO BID [facility] Stop: 08/15/18 08:59 Last Admin: 06/23/18 09:31 Dose: 5 mg Mirtazapine (Remeron) 15 mg PO HS [facility] Stop: 08/15/18 20:59 Last Admin: 06/22/18 20:42 Dose: 15 mg Multivitamins/Vitamin C (Theragran) 1 tab PO DAILY [facility] Stop: 08/14/18 08:59 Last Admin: 06/23/18 09:31 Dose: 1 tab Zolpidem Tartrate (Ambien) 5 mg PO HS PRN PRN Reason: Insomnia Stop: 08/13/18 10:12 Last Admin: 06/20/18 21:03 Dose: 5 mg General: alert HEENT: PERRLA, EOMI Neck: Supple, No JVD, No LAD, other Lungs: CTAB Cardiovascular: RRR, Normal S1, Normal S2, without murmur Abdomen: soft, non-tender, positive bowel sound Extremities: clear Neurological: no change Internal Medicine Assmt/Plan - Assessment Assessment: ACUTE PSYCH DECOMPENSATION 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 HX OF BPH HX OF ETOH-no s/sx of withdrawals - Plan Plan: CONT WITH CURRENT INPT PSYCH SUPPORTIVE CARE AND MGT CONT WITH SYNTHOID-adjusted. CONT WITH ARICEPT/NAMENDA CONT WITH CARDURA/PROSCAR MONITOR BP Nutritional Asmnt/Malnutr-PDOC - Dietary Evaluation Malnutrition Findings (Please click <Entered> for more info): Nutritional Asmnt/Malnutrition Start: 06/20/18 15: 10 Text: Status: Complete Freq: Protocol: Document 06/20/18 15:10 HAYDEE (Rec: 06/20/18 15:17 HAYDEE [email or web address]) Nutritional Asmnt/Malnutrition Patient General Information Nutritional Screening Low Risk Diagnosis pyschosis Pertinent Medical Hx/Surgical Hx PTSD, dementia, ETOH, hypothyroidism, BPH, hyperlipidemia Subjective Information Pt seen in his room with family visiting. pt stated he has good appetite, food is good, no questions. Per EMR, PO intake 75-100%. Current Diet Order/ Nutrition Support regular Pertinent Medications lasix, synthroidm, remeron, theragran Pertinent Labs 06/14 POC 109 Nutritional Hx/Data Height 1.7 m Height (Calculated Centimeters) 170.2 Current Weight (lbs) 70.307 kg Weight (Calculated Kilograms) 70.3 Weight (Calculated Grams) 00385.8 [place] Body Weight 148 Body Mass Index (BMI) 24.3 Weight Status Approriate GI Symptoms GI Symptoms None Last BM 06/18 Difficult in: None Skin Integrity/Comment: laceration to neck gary 21 Current %PO Good (75-100%) Estimated Nutritional Goals BEE in Kcals: Using Current wt Calories/Kcals/Kg 25-30 Kcals Calculated 9947-8702 Protein: Using Current wt Protein g/k Protein Calculated 70 Fluid: ml 1750-2100ml (1ml/kcal) Nutritional Problem No current Nutrition Prob Problem N/A Malnutrition Alert Is there a minimum of two criteria No selected? Query Text:Check all the applicable criteria. A minimum of two criteria are recommended for diagnosis of either severe or non-severe malnutrition. Malnutrition Related to Morbid Obesity Malnutrition related to morbid obesity No Intervention/Recommendation Comments 1. Continue with regular diet as ordered. 2. Monitor PO intake, wt, labs and skin integrity 3. F/U as low risk in 7 days Expected Outcomes/Goals Expected Outcomes/Goals 1. PO intake to meet at least 75% of nutritional needs. 2. Wt stability, skin to remain intact, labs to approach WNL.
--- NOTE | 2018-06-24 05:15 | Progress Notes ---
DATE: 06/23/2018 Case was discussed with staff of the patient, reviewed records. The patient is out of bed, socializing. He is hard of hearing. He is denying any current intent to harm himself or anybody. He denies any loose visual hallucination, however, he is confused, demented. Continues to be unpredictable, impulsive with his very significant suicide attempt. We tried to send him to the [facility], but so far they do have a bed, so we could not transfer him. We do plan to send him to SNF facility. No side effects of the medication, no sedation, no nausea, and no extrapyramidal symptoms and will continue outpatient group therapy, milieu therapy and adjust medications. JOB# [id number]
[2018-06-24] MEDS: Levothyroxine 0.05 Mg Tab PO SCH (06:54)
[2018-06-24] MEDS: Multivitamin Tab PO SCH (08:51)
[2018-06-24] MEDS: Aspirin 81mg Chewable Tab PO SCH (08:51)
--- NOTE | 2018-06-24 08:54 | Internal Medicine Prog Note ---
Internal Medicine Subjective - Subjective Service Date: 06/24/18 (comfortable) Patient seen and examined:: without staff Patient is:: awake Per staff patient has:: no adverse event Internal Medicine Objective - Results Recent Labs: Laboratory Last Values POC Glucose 109 MG/DL (70 - 105) H 06/14/18 11:22 Triglycerides 82 mg/dL (<150) 06/14/18 11:30 Cholesterol 123 mg/dL (<200) 06/14/18 11:30 LDL Cholesterol Direct 62 mg/dL (75-193) L 06/14/18 11:30 HDL Cholesterol 46 mg/dL (23-92) 06/14/18 11:30 Free T4 0.91 ng/dL (0.82-1.77) 06/14/18 11:30 TSH 4.87 uIU/ml (0.34-5.60) 06/14/18 11:30 - Physical Exam Vitals and I&O: Vital Signs Temp 97.6 F 06/24/18 05:15 Pulse 61 06/24/18 05:15 Resp 19 06/24/18 05:15 BP 113/69 06/24/18 05:15 Pulse Ox 98 06/24/18 05:15 Intake & Output 06/23/18 06/24/18 06/24/18 18:59 06:59 18:59 Intake Total 480 Balance 480 Intake: Oral 480 Other: # Voids 2 2 # Bowel Movements 0 Active Medications: Current Medications Acetaminophen (Tylenol) 650 mg PO Q4HR PRN PRN Reason: Mild Pain / Temp above 100 Stop: 08/13/18 10:12 Al Hydrox/Mg Hydrox/Simethicone (Maalox) 30 ml PO Q4HR PRN PRN Reason: GI DISTRESS Stop: 08/13/18 10:12 Aripiprazole (Abilify) 5 mg PO DAILY [facility]; Protocol Stop: 08/17/18 08:59 Last Admin: 06/23/18 09:31 Dose: 5 mg Aspirin (Aspirin Chewable) 81 mg PO DAILY [facility] Stop: 08/14/18 08:59 Last Admin: 06/23/18 09:31 Dose: 81 mg Donepezil HCl (Aricept) 10 mg PO HS [facility] Stop: 08/13/18 20:59 Last Admin: 06/23/18 21:14 Dose: 10 mg Doxazosin Mesylate (Cardura) 8 mg PO HS [facility] Stop: 08/13/18 20:59 Last Admin: 06/23/18 21:14 Dose: 8 mg Escitalopram Oxalate (Lexapro) 15 mg PO HS [facility]; Protocol Stop: 08/19/18 20:59 Last Admin: 06/23/18 21:13 Dose: 15 mg Finasteride (Proscar) 5 mg PO DAILY [facility]; Protocol Stop: 08/14/18 08:59 Last Admin: 06/23/18 09:31 Dose: 5 mg Furosemide (Lasix) 20 mg PO DAILY [facility] Stop: 08/14/18 08:59 Last Admin: 06/23/18 09:31 Dose: Not Given Levothyroxine Sodium (Synthroid) 0.05 mg PO QDAC [facility] Stop: 08/16/18 07:29 Last Admin: 06/24/18 06:54 Dose: 0.05 mg Lorazepam (Ativan) 0.5 mg PO Q4HR PRN; Protocol PRN Reason: Anxiety Stop: 08/13/18 10:21 Magnesium Hydroxide (Milk Of Magnesia) 30 ml PO HS PRN PRN Reason: Constipation Memantine (Namenda) 5 mg PO BID [facility] Stop: 08/15/18 08:59 Last Admin: 06/23/18 16:15 Dose: 5 mg Mirtazapine (Remeron) 15 mg PO HS [facility] Stop: 08/15/18 20:59 Last Admin: 06/23/18 21:14 Dose: 15 mg Multivitamins/Vitamin C (Theragran) 1 tab PO DAILY [facility] Stop: 08/14/18 08:59 Last Admin: 06/23/18 09:31 Dose: 1 tab Zolpidem Tartrate (Ambien) 5 mg PO HS PRN PRN Reason: Insomnia Stop: 08/13/18 10:12 Last Admin: 06/20/18 21:03 Dose: 5 mg General: alert HEENT: PERRLA, EOMI Neck: Supple, No JVD, No LAD, other Lungs: CTAB Cardiovascular: RRR, Normal S1, Normal S2, without murmur Abdomen: soft, non-tender, positive bowel sound Extremities: clear Neurological: no change Internal Medicine Assmt/Plan - Assessment Assessment: ACUTE PSYCH DECOMPENSATION 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 HX OF BPH HX OF ETOH-no s/sx of withdrawals - Plan Plan: CONT WITH CURRENT INPT PSYCH SUPPORTIVE CARE AND MGT CONT WITH SYNTHOID-adjusted. CONT WITH ARICEPT/NAMENDA CONT WITH CARDURA/PROSCAR MONITOR BP Nutritional Asmnt/Malnutr-PDOC - Dietary Evaluation Malnutrition Findings (Please click <Entered> for more info): Nutritional Asmnt/Malnutrition Start: 06/20/18 15: 10 Text: Status: Complete Freq: Protocol: Document 06/20/18 15:10 LCCONSUELOG (Rec: 06/20/18 15:17 LCCONSUELO [email or web address]) Nutritional Asmnt/Malnutrition Patient General Information Nutritional Screening Low Risk Diagnosis pyschosis Pertinent Medical Hx/Surgical Hx PTSD, dementia, ETOH, hypothyroidism, BPH, hyperlipidemia Subjective Information Pt seen in his room with family visiting. pt stated he has good appetite, food is good, no questions. Per EMR, PO intake 75-100%. Current Diet Order/ Nutrition Support regular Pertinent Medications lasix, synthroidm, remeron, theragran Pertinent Labs 06/14 POC 109 Nutritional Hx/Data Height 1.7 m Height (Calculated Centimeters) 170.2 Current Weight (lbs) 70.307 kg Weight (Calculated Kilograms) 70.3 Weight (Calculated Grams) 74563.8 [place] Body Weight 148 Body Mass Index (BMI) 24.3 Weight Status Approriate GI Symptoms GI Symptoms None Last BM 06/18 Difficult in: None Skin Integrity/Comment: laceration to neck gary 21 Current %PO Good (75-100%) Estimated Nutritional Goals BEE in Kcals: Using Current wt Calories/Kcals/Kg 25-30 Kcals Calculated 6277-1488 Protein: Using Current wt Protein g/k Protein Calculated 70 Fluid: ml 1750-2100ml (1ml/kcal) Nutritional Problem No current Nutrition Prob Problem N/A Malnutrition Alert Is there a minimum of two criteria No selected? Query Text:Check all the applicable criteria. A minimum of two criteria are recommended for diagnosis of either severe or non-severe malnutrition. Malnutrition Related to Morbid Obesity Malnutrition related to morbid obesity No Intervention/Recommendation Comments 1. Continue with regular diet as ordered. 2. Monitor PO intake, wt, labs and skin integrity 3. F/U as low risk in 7 days Expected Outcomes/Goals Expected Outcomes/Goals 1. PO intake to meet at least 75% of nutritional needs. 2. Wt stability, skin to remain intact, labs to approach WNL.
--- NOTE | 2018-06-25 00:46 | Progress Notes ---
DATE: 06/24/2018 SUBJECTIVE: Case was discussed with staff of the patient, reviewed records. The patient continues to be confused, demented. Continues to appear to be depressed, continues to be unable to make safe plan for self-care. He is unpredictable and impulsive. He has a serious suicide attempt; I will be increasing Lexapro dose to 20 mg a day. He is also on Abilify to augment the effect of the Lexapro because of his severe depression. We are working to try to send him to the [facility] or if not a nursing facility, as his family does not feel safe taking him home because of his very dangerous suicide attempt and dangerous behavior and so far he is ____ about all this, does not realize what he did and so far no side effects with the medication, no sedation, no nausea, no extrapyramidal symptoms. We will continue to work with the patient in group therapy, milieu therapy, and adjust the medications as needed. JOB# [id number]
[2018-06-25] MEDS: Levothyroxine 0.05 Mg Tab PO SCH (06:36)
[2018-06-25] MEDS: Multivitamin Tab PO SCH (08:32)
[2018-06-25] MEDS: Aspirin 81mg Chewable Tab PO SCH (08:40)
--- NOTE | 2018-06-25 19:13 | Internal Medicine Prog Note ---
Internal Medicine Subjective - Subjective Service Date: 06/25/18 (NO EVENTS) Patient seen and examined:: without staff Patient is:: awake Per staff patient has:: no adverse event Internal Medicine Objective - Results Recent Labs: Laboratory Last Values POC Glucose 109 MG/DL (70 - 105) H 06/14/18 11:22 Triglycerides 82 mg/dL (<150) 06/14/18 11:30 Cholesterol 123 mg/dL (<200) 06/14/18 11:30 LDL Cholesterol Direct 62 mg/dL (75-193) L 06/14/18 11:30 HDL Cholesterol 46 mg/dL (23-92) 06/14/18 11:30 Free T4 0.91 ng/dL (0.82-1.77) 06/14/18 11:30 TSH 4.87 uIU/ml (0.34-5.60) 06/14/18 11:30 - Physical Exam Vitals and I&O: Vital Signs Temp 97.2 F 06/25/18 14:00 Pulse 55 06/25/18 14:00 Resp 20 06/25/18 14:00 BP 113/66 06/25/18 14:00 Pulse Ox 98 06/25/18 14:00 Intake & Output 06/25/18 06/25/18 06/26/18 06:59 18:59 06:59 Intake Total 240 1200 Balance 240 1200 Intake: Oral 240 1200 Other: # Voids 2 # Bowel Movements 0 1 Active Medications: Current Medications Acetaminophen (Tylenol) 650 mg PO Q4HR PRN PRN Reason: Mild Pain / Temp above 100 Stop: 08/13/18 10:12 Al Hydrox/Mg Hydrox/Simethicone (Maalox) 30 ml PO Q4HR PRN PRN Reason: GI DISTRESS Stop: 08/13/18 10:12 Aripiprazole (Abilify) 5 mg PO DAILY [facility]; Protocol Stop: 08/17/18 08:59 Last Admin: 06/25/18 08:33 Dose: 5 mg Aspirin (Aspirin Chewable) 81 mg PO DAILY [facility] Stop: 08/14/18 08:59 Last Admin: 06/25/18 08:40 Dose: 81 mg Donepezil HCl (Aricept) 10 mg PO HS [facility] Stop: 08/13/18 20:59 Last Admin: 06/24/18 20:55 Dose: 10 mg Doxazosin Mesylate (Cardura) 8 mg PO HS [facility] Stop: 08/13/18 20:59 Last Admin: 06/24/18 20:54 Dose: 8 mg Escitalopram Oxalate (Lexapro) 20 mg PO HS [facility]; Protocol Stop: 08/23/18 20:59 Last Admin: 06/24/18 20:55 Dose: 20 mg Finasteride (Proscar) 5 mg PO DAILY [facility]; Protocol Stop: 08/14/18 08:59 Last Admin: 06/25/18 08:32 Dose: 5 mg Furosemide (Lasix) 20 mg PO DAILY [facility] Stop: 08/14/18 08:59 Last Admin: 06/25/18 08:33 Dose: 20 mg Levothyroxine Sodium (Synthroid) 0.05 mg PO QDAC [facility] Stop: 08/16/18 07:29 Last Admin: 06/25/18 06:36 Dose: 0.05 mg Lorazepam (Ativan) 0.5 mg PO Q4HR PRN; Protocol PRN Reason: Anxiety Stop: 08/13/18 10:21 Magnesium Hydroxide (Milk Of Magnesia) 30 ml PO HS PRN PRN Reason: Constipation Memantine (Namenda) 5 mg PO BID [facility] Stop: 08/15/18 08:59 Last Admin: 06/25/18 16:30 Dose: 5 mg Mirtazapine (Remeron) 15 mg PO HS [facility] Stop: 08/15/18 20:59 Last Admin: 06/24/18 20:55 Dose: 15 mg Multivitamins/Vitamin C (Theragran) 1 tab PO DAILY [facility] Stop: 08/14/18 08:59 Last Admin: 06/25/18 08:32 Dose: 1 tab Zolpidem Tartrate (Ambien) 5 mg PO HS PRN PRN Reason: Insomnia Stop: 08/13/18 10:12 Last Admin: 06/20/18 21:03 Dose: 5 mg General: alert HEENT: PERRLA, EOMI Neck: Supple, No JVD, No LAD, other Lungs: CTAB Cardiovascular: RRR, Normal S1, Normal S2, without murmur Abdomen: soft, non-tender, positive bowel sound Extremities: clear Neurological: no change Internal Medicine Assmt/Plan - Assessment Assessment: ACUTE PSYCH DECOMPENSATION 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 HX OF BPH HX OF ETOH-no s/sx of withdrawals - Plan Plan: CONT WITH CURRENT INPT PSYCH SUPPORTIVE CARE AND MGT CONT WITH SYNTHOID-adjusted. CONT WITH ARICEPT/NAMENDA CONT WITH CARDURA/PROSCAR Nutritional Asmnt/Malnutr-PDOC - Dietary Evaluation Malnutrition Findings (Please click <Entered> for more info): Nutritional Asmnt/Malnutrition Start: 06/20/18 15: 10 Text: Status: Complete Freq: Protocol: Document 06/20/18 15:10 HAYDEE (Rec: 06/20/18 15:17 HAYDEE [email or web address]) Nutritional Asmnt/Malnutrition Patient General Information Nutritional Screening Low Risk Diagnosis pyschosis Pertinent Medical Hx/Surgical Hx PTSD, dementia, ETOH, hypothyroidism, BPH, hyperlipidemia Subjective Information Pt seen in his room with family visiting. pt stated he has good appetite, food is good, no questions. Per EMR, PO intake 75-100%. Current Diet Order/ Nutrition Support regular Pertinent Medications lasix, synthroidm, remeron, theragran Pertinent Labs 06/14 POC 109 Nutritional Hx/Data Height 1.7 m Height (Calculated Centimeters) 170.2 Current Weight (lbs) 70.307 kg Weight (Calculated Kilograms) 70.3 Weight (Calculated Grams) 86158.8 [place] Body Weight 148 Body Mass Index (BMI) 24.3 Weight Status Approriate GI Symptoms GI Symptoms None Last BM 06/18 Difficult in: None Skin Integrity/Comment: laceration to neck gary 21 Current %PO Good (75-100%) Estimated Nutritional Goals BEE in Kcals: Using Current wt Calories/Kcals/Kg 25-30 Kcals Calculated 6431-6763 Protein: Using Current wt Protein g/k Protein Calculated 70 Fluid: ml 1750-2100ml (1ml/kcal) Nutritional Problem No current Nutrition Prob Problem N/A Malnutrition Alert Is there a minimum of two criteria No selected? Query Text:Check all the applicable criteria. A minimum of two criteria are recommended for diagnosis of either severe or non-severe malnutrition. Malnutrition Related to Morbid Obesity Malnutrition related to morbid obesity No Intervention/Recommendation Comments 1. Continue with regular diet as ordered. 2. Monitor PO intake, wt, labs and skin integrity 3. F/U as low risk in 7 days Expected Outcomes/Goals Expected Outcomes/Goals 1. PO intake to meet at least 75% of nutritional needs. 2. Wt stability, skin to remain intact, labs to approach WNL.
--- NOTE | 2018-06-26 05:30 | Progress Notes ---
DATE: 06/25/[address] Polo. IDENTIFYING DATA: An 82-year-old male brought in here after the patient attempted to kill himself by cutting his throat. He was at [facility] for treatment, requiring stitches. Today on [id number] evaluation, the patient is extremely disengaged about his recent suicide attempt. Does not want to talk about it. MENTAL EXAMINATION: PSYCHIATRIC: Depressed, disengaged, aloof to his emotions of aggressive suicide attempt. ASSESSMENT AND PLAN: We will continue with primary psychiatric treatment plan and goal which includes Aricept at 5 mg a day 10 mg and also Lexapro 20 mg, which was recently increased from 10 to 20 mg to target a more of a therapeutic dosage. We will also continue with the current medication which includes Namenda 5 mg p.o. b.i.d. and mirtazapine. JOB# [id number]
[2018-06-26] MEDS: Levothyroxine 0.05 Mg Tab PO SCH (06:38)
[2018-06-26] MEDS: Multivitamin Tab PO SCH (08:29)
[2018-06-26] MEDS: Aspirin 81mg Chewable Tab PO SCH (08:29)
--- NOTE | 2018-06-26 18:12 | Internal Medicine Prog Note ---
Internal Medicine Subjective - Subjective Service Date: 06/26/18 (NO EVENTS) Patient is:: awake Per staff patient has:: no adverse event Internal Medicine Objective - Results Recent Labs: Laboratory Last Values POC Glucose 109 MG/DL (70 - 105) H 06/14/18 11:22 Triglycerides 82 mg/dL (<150) 06/14/18 11:30 Cholesterol 123 mg/dL (<200) 06/14/18 11:30 LDL Cholesterol Direct 62 mg/dL (75-193) L 06/14/18 11:30 HDL Cholesterol 46 mg/dL (23-92) 06/14/18 11:30 Free T4 0.91 ng/dL (0.82-1.77) 06/14/18 11:30 TSH 4.87 uIU/ml (0.34-5.60) 06/14/18 11:30 - Physical Exam Vitals and I&O: Vital Signs Temp 98.3 F 06/26/18 14:00 Pulse 98 06/26/18 14:00 Resp 20 06/26/18 14:00 BP 110/56 06/26/18 14:00 Pulse Ox 99 06/26/18 14:00 Intake & Output 06/25/18 06/26/18 06/26/18 18:59 06:59 18:59 Intake Total 1200 720 950 Balance 1200 720 950 Intake: Oral 1200 720 950 Other: # Voids 2 3 # Bowel Movements 1 0 Active Medications: Current Medications Acetaminophen (Tylenol) 650 mg PO Q4HR PRN PRN Reason: Mild Pain / Temp above 100 Stop: 08/13/18 10:12 Al Hydrox/Mg Hydrox/Simethicone (Maalox) 30 ml PO Q4HR PRN PRN Reason: GI DISTRESS Stop: 08/13/18 10:12 Aripiprazole (Abilify) 5 mg PO DAILY [facility]; Protocol Stop: 08/17/18 08:59 Last Admin: 06/26/18 08:29 Dose: 5 mg Aspirin (Aspirin Chewable) 81 mg PO DAILY [facility] Stop: 08/14/18 08:59 Last Admin: 06/26/18 08:29 Dose: 81 mg Donepezil HCl (Aricept) 10 mg PO HS [facility] Stop: 08/13/18 20:59 Last Admin: 06/25/18 20:29 Dose: 10 mg Doxazosin Mesylate (Cardura) 8 mg PO HS [facility] Stop: 08/13/18 20:59 Last Admin: 06/25/18 20:29 Dose: 8 mg Escitalopram Oxalate (Lexapro) 20 mg PO HS [facility]; Protocol Stop: 08/23/18 20:59 Last Admin: 06/25/18 20:29 Dose: 20 mg Finasteride (Proscar) 5 mg PO DAILY [facility]; Protocol Stop: 08/14/18 08:59 Last Admin: 06/26/18 08:29 Dose: 5 mg Furosemide (Lasix) 20 mg PO DAILY [facility] Stop: 08/14/18 08:59 Last Admin: 06/26/18 08:29 Dose: 20 mg Levothyroxine Sodium (Synthroid) 0.05 mg PO QDAC [facility] Stop: 08/16/18 07:29 Last Admin: 06/26/18 06:38 Dose: 0.05 mg Lorazepam (Ativan) 0.5 mg PO Q4HR PRN; Protocol PRN Reason: Anxiety Stop: 08/13/18 10:21 Magnesium Hydroxide (Milk Of Magnesia) 30 ml PO HS PRN PRN Reason: Constipation Memantine (Namenda) 5 mg PO BID [facility] Stop: 08/15/18 08:59 Last Admin: 06/26/18 16:27 Dose: 5 mg Mirtazapine (Remeron) 15 mg PO HS [facility] Stop: 08/15/18 20:59 Last Admin: 06/25/18 20:29 Dose: 15 mg Multivitamins/Vitamin C (Theragran) 1 tab PO DAILY [facility] Stop: 08/14/18 08:59 Last Admin: 06/26/18 08:29 Dose: 1 tab Zolpidem Tartrate (Ambien) 5 mg PO HS PRN PRN Reason: Insomnia Stop: 08/13/18 10:12 Last Admin: 06/20/18 21:03 Dose: 5 mg General: alert HEENT: PERRLA, EOMI Neck: Supple, No JVD, No LAD, other Lungs: CTAB Cardiovascular: RRR, Normal S1, Normal S2, without murmur Abdomen: soft, non-tender, positive bowel sound Extremities: clear Neurological: no change Internal Medicine Assmt/Plan - Assessment Assessment: ACUTE PSYCH DECOMPENSATION 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 HX OF BPH HX OF ETOH-no s/sx of withdrawals - Plan Plan: CONT WITH CURRENT INPT PSYCH SUPPORTIVE CARE AND MGT CONT WITH SYNTHOID-adjusted. CONT WITH ARICEPT/NAMENDA CONT WITH CARDURA/PROSCAR Nutritional Asmnt/Malnutr-PDOC - Dietary Evaluation Malnutrition Findings (Please click <Entered> for more info): Nutritional Asmnt/Malnutrition Start: 06/20/18 15: 10 Text: Status: Complete Freq: Protocol: Document 06/20/18 15:10 LCHENG (Rec: 06/20/18 15:17 CONSUELO [email or web address]) Nutritional Asmnt/Malnutrition Patient General Information Nutritional Screening Low Risk Diagnosis pyschosis Pertinent Medical Hx/Surgical Hx PTSD, dementia, ETOH, hypothyroidism, BPH, hyperlipidemia Subjective Information Pt seen in his room with family visiting. pt stated he has good appetite, food is good, no questions. Per EMR, PO intake 75-100%. Current Diet Order/ Nutrition Support regular Pertinent Medications lasix, synthroidm, remeron, theragran Pertinent Labs 06/14 POC 109 Nutritional Hx/Data Height 1.7 m Height (Calculated Centimeters) 170.2 Current Weight (lbs) 70.307 kg Weight (Calculated Kilograms) 70.3 Weight (Calculated Grams) 53338.8 [place] Body Weight 148 Body Mass Index (BMI) 24.3 Weight Status Approriate GI Symptoms GI Symptoms None Last BM 06/18 Difficult in: None Skin Integrity/Comment: laceration to neck gary 21 Current %PO Good (75-100%) Estimated Nutritional Goals BEE in Kcals: Using Current wt Calories/Kcals/Kg 25-30 Kcals Calculated 8463-6592 Protein: Using Current wt Protein g/k Protein Calculated 70 Fluid: ml 1750-2100ml (1ml/kcal) Nutritional Problem No current Nutrition Prob Problem N/A Malnutrition Alert Is there a minimum of two criteria No selected? Query Text:Check all the applicable criteria. A minimum of two criteria are recommended for diagnosis of either severe or non-severe malnutrition. Malnutrition Related to Morbid Obesity Malnutrition related to morbid obesity No Intervention/Recommendation Comments 1. Continue with regular diet as ordered. 2. Monitor PO intake, wt, labs and skin integrity 3. F/U as low risk in 7 days Expected Outcomes/Goals Expected Outcomes/Goals 1. PO intake to meet at least 75% of nutritional needs. 2. Wt stability, skin to remain intact, labs to approach WNL.
--- NOTE | 2018-06-27 06:01 | Progress Notes ---
DATE: 06/26/2018 SUBJECTIVE: The patient was seen and evaluated. The patient's chart reviewed. COVERING FOR: Dr. Polo. Today talking in regards to the patient's recent suicide attempts, continues to be disengaged, does not want to talk about it and easily irritable with further questioning regarding his emotions that led to the attempt. MENTAL STATUS EXAMINATION: Irritable, agitated. ASSESSMENT AND PLAN: Due to the patient's severe depression and severe suicide attempt, unable to formulate safe plan. We will continue with primary psychiatrist's treatment plan and goals to target the patient's ongoing symptoms. JOB# [id number]
[2018-06-27] MEDS: Levothyroxine 0.05 Mg Tab PO SCH (06:46)
[2018-06-27] MEDS: Aspirin 81mg Chewable Tab PO SCH (09:45)
[2018-06-27] MEDS: Multivitamin Tab PO SCH (09:45)
--- NOTE | 2018-06-27 09:46 | Internal Medicine Prog Note ---
Internal Medicine Subjective - Subjective Service Date: 06/27/18 (NO DISTRESS OR EVENTS) Patient seen and examined:: without staff Patient is:: awake Per staff patient has:: no adverse event Internal Medicine Objective - Results Recent Labs: Laboratory Last Values POC Glucose 109 MG/DL (70 - 105) H 06/14/18 11:22 Triglycerides 82 mg/dL (<150) 06/14/18 11:30 Cholesterol 123 mg/dL (<200) 06/14/18 11:30 LDL Cholesterol Direct 62 mg/dL (75-193) L 06/14/18 11:30 HDL Cholesterol 46 mg/dL (23-92) 06/14/18 11:30 Free T4 0.91 ng/dL (0.82-1.77) 06/14/18 11:30 TSH 4.87 uIU/ml (0.34-5.60) 06/14/18 11:30 - Physical Exam Vitals and I&O: Vital Signs Temp 96.9 F 06/27/18 06:25 Pulse 55 06/27/18 06:25 Resp 20 06/27/18 06:25 BP 104/67 06/27/18 06:25 Pulse Ox 95 06/27/18 06:25 Intake & Output 06/26/18 06/27/18 06/27/18 18:59 06:59 18:59 Intake Total 950 300 Balance 950 300 Intake: Oral 950 300 Other: # Voids 3 1 # Bowel Movements 0 0 Active Medications: Current Medications Acetaminophen (Tylenol) 650 mg PO Q4HR PRN PRN Reason: Mild Pain / Temp above 100 Stop: 08/13/18 10:12 Al Hydrox/Mg Hydrox/Simethicone (Maalox) 30 ml PO Q4HR PRN PRN Reason: GI DISTRESS Stop: 08/13/18 10:12 Aripiprazole (Abilify) 5 mg PO DAILY [facility]; Protocol Stop: 08/17/18 08:59 Last Admin: 06/26/18 08:29 Dose: 5 mg Aspirin (Aspirin Chewable) 81 mg PO DAILY [facility] Stop: 08/14/18 08:59 Last Admin: 06/26/18 08:29 Dose: 81 mg Donepezil HCl (Aricept) 10 mg PO HS [facility] Stop: 08/13/18 20:59 Last Admin: 06/26/18 21:05 Dose: 10 mg Doxazosin Mesylate (Cardura) 8 mg PO HS [facility] Stop: 08/13/18 20:59 Last Admin: 06/26/18 21:05 Dose: 8 mg Escitalopram Oxalate (Lexapro) 20 mg PO HS [facility]; Protocol Stop: 08/23/18 20:59 Last Admin: 06/26/18 21:05 Dose: 20 mg Finasteride (Proscar) 5 mg PO DAILY [facility]; Protocol Stop: 08/14/18 08:59 Last Admin: 06/26/18 08:29 Dose: 5 mg Furosemide (Lasix) 20 mg PO DAILY [facility] Stop: 08/14/18 08:59 Last Admin: 06/26/18 08:29 Dose: 20 mg Levothyroxine Sodium (Synthroid) 0.05 mg PO QDAC [facility] Stop: 08/16/18 07:29 Last Admin: 06/27/18 06:46 Dose: 0.05 mg Lorazepam (Ativan) 0.5 mg PO Q4HR PRN; Protocol PRN Reason: Anxiety Stop: 08/13/18 10:21 Magnesium Hydroxide (Milk Of Magnesia) 30 ml PO HS PRN PRN Reason: Constipation Memantine (Namenda) 5 mg PO BID [facility] Stop: 08/15/18 08:59 Last Admin: 06/26/18 16:27 Dose: 5 mg Mirtazapine (Remeron) 15 mg PO HS [facility] Stop: 08/15/18 20:59 Last Admin: 06/26/18 21:05 Dose: 15 mg Multivitamins/Vitamin C (Theragran) 1 tab PO DAILY [facility] Stop: 08/14/18 08:59 Last Admin: 06/26/18 08:29 Dose: 1 tab Zolpidem Tartrate (Ambien) 5 mg PO HS PRN PRN Reason: Insomnia Stop: 08/13/18 10:12 Last Admin: 06/20/18 21:03 Dose: 5 mg General: alert HEENT: PERRLA, EOMI Neck: Supple, No JVD, No LAD, other Lungs: CTAB Cardiovascular: RRR, Normal S1, Normal S2, without murmur Abdomen: soft, non-tender, positive bowel sound Extremities: clear Neurological: no change Internal Medicine Assmt/Plan - Assessment Assessment: ACUTE PSYCH DECOMPENSATION 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 HX OF BPH HX OF ETOH-no s/sx of withdrawals - Plan Plan: CONT WITH CURRENT INPT PSYCH SUPPORTIVE CARE AND MGT CONT WITH SYNTHOID-adjusted. CONT WITH ARICEPT/NAMENDA CONT WITH CARDURA/PROSCAR Nutritional Asmnt/Malnutr-PDOC - Dietary Evaluation Malnutrition Findings (Please click <Entered> for more info): Nutritional Asmnt/Malnutrition Start: 06/20/18 15: 10 Text: Status: Complete Freq: Protocol: Document 06/20/18 15:10 LCCONSUELOG (Rec: 06/20/18 15:17 CONSUELO [email or web address]) Nutritional Asmnt/Malnutrition Patient General Information Nutritional Screening Low Risk Diagnosis pyschosis Pertinent Medical Hx/Surgical Hx PTSD, dementia, ETOH, hypothyroidism, BPH, hyperlipidemia Subjective Information Pt seen in his room with family visiting. pt stated he has good appetite, food is good, no questions. Per EMR, PO intake 75-100%. Current Diet Order/ Nutrition Support regular Pertinent Medications lasix, synthroidm, remeron, theragran Pertinent Labs 06/14 POC 109 Nutritional Hx/Data Height 1.7 m Height (Calculated Centimeters) 170.2 Current Weight (lbs) 70.307 kg Weight (Calculated Kilograms) 70.3 Weight (Calculated Grams) 82164.8 [place] Body Weight 148 Body Mass Index (BMI) 24.3 Weight Status Approriate GI Symptoms GI Symptoms None Last BM 06/18 Difficult in: None Skin Integrity/Comment: laceration to neck gary 21 Current %PO Good (75-100%) Estimated Nutritional Goals BEE in Kcals: Using Current wt Calories/Kcals/Kg 25-30 Kcals Calculated 1207-2838 Protein: Using Current wt Protein g/k Protein Calculated 70 Fluid: ml 1750-2100ml (1ml/kcal) Nutritional Problem No current Nutrition Prob Problem N/A Malnutrition Alert Is there a minimum of two criteria No selected? Query Text:Check all the applicable criteria. A minimum of two criteria are recommended for diagnosis of either severe or non-severe malnutrition. Malnutrition Related to Morbid Obesity Malnutrition related to morbid obesity No Intervention/Recommendation Comments 1. Continue with regular diet as ordered. 2. Monitor PO intake, wt, labs and skin integrity 3. F/U as low risk in 7 days Expected Outcomes/Goals Expected Outcomes/Goals 1. PO intake to meet at least 75% of nutritional needs. 2. Wt stability, skin to remain intact, labs to approach WNL.
--- NOTE | 2018-06-28 00:55 | Progress Notes ---
DATE: 06/27/2018 Case was discussed with staff of the patient and reviewed records. The patient continues to isolate himself. He continues to be unpredictable and impulsive especially with his dementing process. He continues to have poor insight. He is tolerating increase in Lexapro to 20 mg a day. I will be increasing Abilify to 10 mg daily, and so far, no side effects with the medication, no sedation, no nausea, and no extrapyramidal symptoms. We are working on sending him either to [facility] or to a nursing facility because according to the family, they do not want him to be with his as he tried to slit his throat while he was there and they do not think she can take care of him. No side effects with the medication, no sedation, no nausea, and no extrapyramidal symptoms. We will continue to work with the patient in group therapy, milieu therapy, and adjust medications as needed. JOB# [id number]
[2018-06-28] MEDS: Levothyroxine 0.05 Mg Tab PO SCH (06:32)
[2018-06-28] MEDS: Multivitamin Tab PO SCH (09:21)
[2018-06-28] MEDS: Aspirin 81mg Chewable Tab PO SCH (09:21)
--- NOTE | 2018-06-28 12:43 | Cardiology ---
06/28/2018 Case was discussed with staff of the patient, reviewed records. The patient tolerated the increase in Abilify. He is able to talk more. He is sleeping better, eating better. He is compliant with the medication with no side effects. Working on discharge plan. Trying to find him a safe place to go to. No side effects of the medication, no sedation, no nausea, no extrapyramidal symptoms. The patient is a high risk because of his suicidal behavior, tried to slit his throat. I will keep the patient in group therapy, milieu therapy, and adjust medications as needed. JOB# [id number]
--- NOTE | 2018-06-28 16:01 | Internal Medicine Prog Note ---
Internal Medicine Subjective - Subjective Service Date: 06/28/18 (NO EVENTS OR CHANGES) Patient seen and examined:: without staff Patient is:: awake Per staff patient has:: no adverse event Internal Medicine Objective - Results Recent Labs: Laboratory Last Values POC Glucose 109 MG/DL (70 - 105) H 06/14/18 11:22 Triglycerides 82 mg/dL (<150) 06/14/18 11:30 Cholesterol 123 mg/dL (<200) 06/14/18 11:30 LDL Cholesterol Direct 62 mg/dL (75-193) L 06/14/18 11:30 HDL Cholesterol 46 mg/dL (23-92) 06/14/18 11:30 Free T4 0.91 ng/dL (0.82-1.77) 06/14/18 11:30 TSH 4.87 uIU/ml (0.34-5.60) 06/14/18 11:30 - Physical Exam Vitals and I&O: Vital Signs Temp 97.6 F 06/28/18 06:30 Pulse 56 06/28/18 06:30 Resp 20 06/28/18 06:30 BP 108/56 06/28/18 06:30 Pulse Ox 94 06/28/18 06:30 Intake & Output 06/27/18 06/28/18 06/28/18 18:59 06:59 18:59 Intake Total 950 300 Balance 950 300 Intake: Oral 950 300 Other: # Voids 4 1 # Bowel Movements 1 1 Active Medications: Current Medications Acetaminophen (Tylenol) 650 mg PO Q4HR PRN PRN Reason: Mild Pain / Temp above 100 Stop: 08/13/18 10:12 Al Hydrox/Mg Hydrox/Simethicone (Maalox) 30 ml PO Q4HR PRN PRN Reason: GI DISTRESS Stop: 08/13/18 10:12 Aripiprazole (Abilify) 10 mg PO DAILY [facility]; Protocol Stop: 08/27/18 08:59 Last Admin: 06/28/18 09:21 Dose: 10 mg Aspirin (Aspirin Chewable) 81 mg PO DAILY [facility] Stop: 08/14/18 08:59 Last Admin: 06/28/18 09:21 Dose: 81 mg Donepezil HCl (Aricept) 10 mg PO HS [facility] Stop: 08/13/18 20:59 Last Admin: 06/27/18 20:14 Dose: 10 mg Doxazosin Mesylate (Cardura) 8 mg PO HS [facility] Stop: 08/13/18 20:59 Last Admin: 06/27/18 20:15 Dose: 8 mg Escitalopram Oxalate (Lexapro) 20 mg PO HS [facility]; Protocol Stop: 08/23/18 20:59 Last Admin: 06/27/18 20:16 Dose: 20 mg Finasteride (Proscar) 5 mg PO DAILY [facility]; Protocol Stop: 08/14/18 08:59 Last Admin: 06/28/18 09:21 Dose: 5 mg Furosemide (Lasix) 20 mg PO DAILY [facility] Stop: 08/14/18 08:59 Last Admin: 06/28/18 09:22 Dose: 20 mg Levothyroxine Sodium (Synthroid) 0.05 mg PO QDAC [facility] Stop: 08/16/18 07:29 Last Admin: 06/28/18 06:32 Dose: 0.05 mg Lorazepam (Ativan) 0.5 mg PO Q4HR PRN; Protocol PRN Reason: Anxiety Stop: 08/13/18 10:21 Magnesium Hydroxide (Milk Of Magnesia) 30 ml PO HS PRN PRN Reason: Constipation Memantine (Namenda) 5 mg PO BID [facility] Stop: 08/15/18 08:59 Last Admin: 06/28/18 09:21 Dose: 5 mg Mirtazapine (Remeron) 15 mg PO HS [facility] Stop: 08/15/18 20:59 Last Admin: 06/27/18 20:16 Dose: 15 mg Multivitamins/Vitamin C (Theragran) 1 tab PO DAILY [facility] Stop: 08/14/18 08:59 Last Admin: 06/28/18 09:21 Dose: 1 tab Zolpidem Tartrate (Ambien) 5 mg PO HS PRN PRN Reason: Insomnia Stop: 08/13/18 10:12 Last Admin: 06/20/18 21:03 Dose: 5 mg General: alert HEENT: PERRLA, EOMI Neck: Supple, No JVD, No LAD, other Lungs: CTAB Cardiovascular: RRR, Normal S1, Normal S2, without murmur Abdomen: soft, non-tender, positive bowel sound Extremities: clear Neurological: no change Internal Medicine Assmt/Plan - Assessment Assessment: ACUTE PSYCH DECOMPENSATION 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 HX OF BPH HX OF ETOH-no s/sx of withdrawals - Plan Plan: CONT WITH CURRENT INPT PSYCH SUPPORTIVE CARE AND MGT CONT WITH SYNTHOID-adjusted. CONT WITH ARICEPT/NAMENDA CONT WITH CARDURA/PROSCAR Nutritional Asmnt/Malnutr-PDOC - Dietary Evaluation Malnutrition Findings (Please click <Entered> for more info): Nutritional Asmnt/Malnutrition Start: 06/20/18 15: 10 Text: Status: Complete Freq: Protocol: Document 06/20/18 15:10 LCCONSUELOG (Rec: 06/20/18 15:17 CONSUELO [email or web address]) Nutritional Asmnt/Malnutrition Patient General Information Nutritional Screening Low Risk Diagnosis pyschosis Pertinent Medical Hx/Surgical Hx PTSD, dementia, ETOH, hypothyroidism, BPH, hyperlipidemia Subjective Information Pt seen in his room with family visiting. pt stated he has good appetite, food is good, no questions. Per EMR, PO intake 75-100%. Current Diet Order/ Nutrition Support regular Pertinent Medications lasix, synthroidm, remeron, theragran Pertinent Labs 06/14 POC 109 Nutritional Hx/Data Height 1.7 m Height (Calculated Centimeters) 170.2 Current Weight (lbs) 70.307 kg Weight (Calculated Kilograms) 70.3 Weight (Calculated Grams) 10013.8 [place] Body Weight 148 Body Mass Index (BMI) 24.3 Weight Status Approriate GI Symptoms GI Symptoms None Last BM 06/18 Difficult in: None Skin Integrity/Comment: laceration to neck gary 21 Current %PO Good (75-100%) Estimated Nutritional Goals BEE in Kcals: Using Current wt Calories/Kcals/Kg 25-30 Kcals Calculated 7554-2966 Protein: Using Current wt Protein g/k Protein Calculated 70 Fluid: ml 1750-2100ml (1ml/kcal) Nutritional Problem No current Nutrition Prob Problem N/A Malnutrition Alert Is there a minimum of two criteria No selected? Query Text:Check all the applicable criteria. A minimum of two criteria are recommended for diagnosis of either severe or non-severe malnutrition. Malnutrition Related to Morbid Obesity Malnutrition related to morbid obesity No Intervention/Recommendation Comments 1. Continue with regular diet as ordered. 2. Monitor PO intake, wt, labs and skin integrity 3. F/U as low risk in 7 days Expected Outcomes/Goals Expected Outcomes/Goals 1. PO intake to meet at least 75% of nutritional needs. 2. Wt stability, skin to remain intact, labs to approach WNL.
[2018-06-29] MEDS: Levothyroxine 0.05 Mg Tab PO SCH (06:37)
[2018-06-29] MEDS: Aspirin 81mg Chewable Tab PO SCH (08:21)
[2018-06-29] MEDS: Multivitamin Tab PO SCH (08:22)
--- NOTE | 2018-06-29 13:18 | Progress Notes ---
DATE: 06/29/2018 Case was discussed with staff of the patient, reviewed records. The patient continues to isolate himself. Continues to be demented, confused, unable to make safe plan for self-care. We will increase the Abilify and Lexapro. No side effects with the medication, no sedation, no nausea, no extrapyramidal symptoms. I will be increasing his Namenda to 10 mg twice a day to help improve his cognition and patient is supposed to be going to rehabilitation center because his son believe that his cannot take care of him and look at the patient in group therapy, milieu therapy, adjust medication as needed. JOB# [id number]
--- NOTE | 2018-06-29 19:13 | Internal Medicine Prog Note ---
Internal Medicine Subjective - Subjective Service Date: 06/29/18 (comfortable) Patient seen and examined:: without staff Patient is:: awake Per staff patient has:: no adverse event Internal Medicine Objective - Results Recent Labs: Laboratory Last Values POC Glucose 109 MG/DL (70 - 105) H 06/14/18 11:22 Triglycerides 82 mg/dL (<150) 06/14/18 11:30 Cholesterol 123 mg/dL (<200) 06/14/18 11:30 LDL Cholesterol Direct 62 mg/dL (75-193) L 06/14/18 11:30 HDL Cholesterol 46 mg/dL (23-92) 06/14/18 11:30 Free T4 0.91 ng/dL (0.82-1.77) 06/14/18 11:30 TSH 4.87 uIU/ml (0.34-5.60) 06/14/18 11:30 - Physical Exam Vitals and I&O: Vital Signs Temp 97.6 F 06/29/18 14:00 Pulse 52 06/29/18 14:00 Resp 18 06/29/18 14:00 BP 98/56 06/29/18 14:00 Pulse Ox 96 06/29/18 14:00 Intake & Output 06/29/18 06/29/18 06/30/18 06:59 18:59 06:59 Intake Total 300 900 Balance 300 900 Intake: Oral 300 900 Other: # Voids 1 3 # Bowel Movements 0 1 Active Medications: Current Medications Acetaminophen (Tylenol) 650 mg PO Q4HR PRN PRN Reason: Mild Pain / Temp above 100 Stop: 08/13/18 10:12 Al Hydrox/Mg Hydrox/Simethicone (Maalox) 30 ml PO Q4HR PRN PRN Reason: GI DISTRESS Stop: 08/13/18 10:12 Aripiprazole (Abilify) 10 mg PO DAILY [facility]; Protocol Stop: 08/27/18 08:59 Last Admin: 06/29/18 08:21 Dose: 10 mg Aspirin (Aspirin Chewable) 81 mg PO DAILY [facility] Stop: 08/14/18 08:59 Last Admin: 06/29/18 08:21 Dose: 81 mg Donepezil HCl (Aricept) 10 mg PO HS [facility] Stop: 08/13/18 20:59 Last Admin: 06/28/18 20:40 Dose: 10 mg Doxazosin Mesylate (Cardura) 8 mg PO HS [facility] Stop: 08/13/18 20:59 Last Admin: 06/28/18 20:40 Dose: 8 mg Escitalopram Oxalate (Lexapro) 20 mg PO HS [facility]; Protocol Stop: 08/23/18 20:59 Last Admin: 06/28/18 20:40 Dose: 20 mg Finasteride (Proscar) 5 mg PO DAILY [facility]; Protocol Stop: 08/14/18 08:59 Last Admin: 06/29/18 08:22 Dose: 5 mg Furosemide (Lasix) 20 mg PO DAILY [facility] Stop: 08/14/18 08:59 Last Admin: 06/29/18 08:21 Dose: 20 mg Levothyroxine Sodium (Synthroid) 0.05 mg PO QDAC [facility] Stop: 08/16/18 07:29 Last Admin: 06/29/18 06:37 Dose: 0.05 mg Lorazepam (Ativan) 0.5 mg PO Q4HR PRN; Protocol PRN Reason: Anxiety Stop: 08/13/18 10:21 Magnesium Hydroxide (Milk Of Magnesia) 30 ml PO HS PRN PRN Reason: Constipation Memantine (Namenda) 10 mg PO BID [facility] Stop: 08/28/18 16:59 Last Admin: 06/29/18 17:16 Dose: 10 mg Mirtazapine (Remeron) 15 mg PO HS [facility] Stop: 08/15/18 20:59 Last Admin: 06/28/18 20:41 Dose: 15 mg Multivitamins/Vitamin C (Theragran) 1 tab PO DAILY [facility] Stop: 08/14/18 08:59 Last Admin: 06/29/18 08:22 Dose: 1 tab Zolpidem Tartrate (Ambien) 5 mg PO HS PRN PRN Reason: Insomnia Stop: 08/13/18 10:12 Last Admin: 06/29/18 01:47 Dose: 5 mg General: alert HEENT: PERRLA, EOMI Neck: Supple, No JVD, No LAD, other Lungs: CTAB Cardiovascular: RRR, Normal S1, Normal S2, without murmur Abdomen: soft, non-tender, positive bowel sound Extremities: clear Neurological: no change Internal Medicine Assmt/Plan - Assessment Assessment: ACUTE PSYCH DECOMPENSATION 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 HX OF BPH HX OF ETOH-no s/sx of withdrawals - Plan Plan: CONT WITH CURRENT INPT PSYCH SUPPORTIVE CARE AND MGT CONT WITH SYNTHOID-adjusted. CONT WITH ARICEPT/NAMENDA CONT WITH CARDURA/PROSCAR Nutritional Asmnt/Malnutr-PDOC - Dietary Evaluation Malnutrition Findings (Please click <Entered> for more info): Nutritional Asmnt/Malnutrition Start: 06/20/18 15: 10 Text: Status: Complete Freq: Protocol: Document 06/20/18 15:10 HAYDEE (Rec: 06/20/18 15:17 HAYDEE REHMAN-[email or web address]) Nutritional Asmnt/Malnutrition Patient General Information Nutritional Screening Low Risk Diagnosis pyschosis Pertinent Medical Hx/Surgical Hx PTSD, dementia, ETOH, hypothyroidism, BPH, hyperlipidemia Subjective Information Pt seen in his room with family visiting. pt stated he has good appetite, food is good, no questions. Per EMR, PO intake 75-100%. Current Diet Order/ Nutrition Support regular Pertinent Medications lasix, synthroidm, remeron, theragran Pertinent Labs 06/14 POC 109 Nutritional Hx/Data Height 1.7 m Height (Calculated Centimeters) 170.2 Current Weight (lbs) 70.307 kg Weight (Calculated Kilograms) 70.3 Weight (Calculated Grams) 04249.8 [place] Body Weight 148 Body Mass Index (BMI) 24.3 Weight Status Approriate GI Symptoms GI Symptoms None Last BM 06/18 Difficult in: None Skin Integrity/Comment: laceration to neck gary 21 Current %PO Good (75-100%) Estimated Nutritional Goals BEE in Kcals: Using Current wt Calories/Kcals/Kg 25-30 Kcals Calculated 7164-3635 Protein: Using Current wt Protein g/k Protein Calculated 70 Fluid: ml 1750-2100ml (1ml/kcal) Nutritional Problem No current Nutrition Prob Problem N/A Malnutrition Alert Is there a minimum of two criteria No selected? Query Text:Check all the applicable criteria. A minimum of two criteria are recommended for diagnosis of either severe or non-severe malnutrition. Malnutrition Related to Morbid Obesity Malnutrition related to morbid obesity No Intervention/Recommendation Comments 1. Continue with regular diet as ordered. 2. Monitor PO intake, wt, labs and skin integrity 3. F/U as low risk in 7 days Expected Outcomes/Goals Expected Outcomes/Goals 1. PO intake to meet at least 75% of nutritional needs. 2. Wt stability, skin to remain intact, labs to approach WNL.
[2018-06-30] MEDS: Levothyroxine 0.05 Mg Tab PO SCH (06:34)
[2018-06-30] MEDS: Multivitamin Tab PO SCH (08:54)
[2018-06-30] MEDS: Aspirin 81mg Chewable Tab PO SCH (08:55)
--- NOTE | 2018-06-30 12:57 | Internal Medicine Prog Note ---
Internal Medicine Subjective - Subjective Service Date: 06/30/18 (STATUS QUO) Patient is:: awake Per staff patient has:: no adverse event Internal Medicine Objective - Results Recent Labs: Laboratory Last Values POC Glucose 109 MG/DL (70 - 105) H 06/14/18 11:22 Triglycerides 82 mg/dL (<150) 06/14/18 11:30 Cholesterol 123 mg/dL (<200) 06/14/18 11:30 LDL Cholesterol Direct 62 mg/dL (75-193) L 06/14/18 11:30 HDL Cholesterol 46 mg/dL (23-92) 06/14/18 11:30 Free T4 0.91 ng/dL (0.82-1.77) 06/14/18 11:30 TSH 4.87 uIU/ml (0.34-5.60) 06/14/18 11:30 - Physical Exam Vitals and I&O: Vital Signs Temp 97.8 F 06/30/18 06:13 Pulse 59 06/30/18 06:13 Resp 18 06/30/18 06:13 BP 111/62 06/30/18 06:13 Pulse Ox 97 06/30/18 06:13 Intake & Output 06/29/18 06/30/18 06/30/18 18:59 06:59 18:59 Intake Total 900 120 Balance 900 120 Intake: Oral 900 120 Other: # Voids 3 3 # Bowel Movements 1 Active Medications: Current Medications Acetaminophen (Tylenol) 650 mg PO Q4HR PRN PRN Reason: Mild Pain / Temp above 100 Stop: 08/13/18 10:12 Al Hydrox/Mg Hydrox/Simethicone (Maalox) 30 ml PO Q4HR PRN PRN Reason: GI DISTRESS Stop: 08/13/18 10:12 Aripiprazole (Abilify) 10 mg PO DAILY [facility]; Protocol Stop: 08/27/18 08:59 Last Admin: 06/30/18 08:53 Dose: 10 mg Aspirin (Aspirin Chewable) 81 mg PO DAILY [facility] Stop: 08/14/18 08:59 Last Admin: 06/30/18 08:55 Dose: 81 mg Donepezil HCl (Aricept) 10 mg PO HS [facility] Stop: 08/13/18 20:59 Last Admin: 06/29/18 20:13 Dose: 10 mg Doxazosin Mesylate (Cardura) 8 mg PO HS [facility] Stop: 08/13/18 20:59 Last Admin: 06/29/18 20:16 Dose: Not Given Escitalopram Oxalate (Lexapro) 20 mg PO HS [facility]; Protocol Stop: 08/23/18 20:59 Last Admin: 06/29/18 20:13 Dose: 20 mg Finasteride (Proscar) 5 mg PO DAILY [facility]; Protocol Stop: 08/14/18 08:59 Last Admin: 06/30/18 08:54 Dose: 5 mg Furosemide (Lasix) 20 mg PO DAILY [facility] Stop: 08/14/18 08:59 Last Admin: 06/30/18 08:54 Dose: 20 mg Levothyroxine Sodium (Synthroid) 0.05 mg PO QDAC [facility] Stop: 08/16/18 07:29 Last Admin: 06/30/18 06:34 Dose: 0.05 mg Lorazepam (Ativan) 0.5 mg PO Q4HR PRN; Protocol PRN Reason: Anxiety Stop: 08/13/18 10:21 Magnesium Hydroxide (Milk Of Magnesia) 30 ml PO HS PRN PRN Reason: Constipation Memantine (Namenda) 10 mg PO BID [facility] Stop: 08/28/18 16:59 Last Admin: 06/30/18 08:55 Dose: 10 mg Mirtazapine (Remeron) 15 mg PO HS [facility] Stop: 08/15/18 20:59 Last Admin: 06/29/18 20:13 Dose: 15 mg Multivitamins/Vitamin C (Theragran) 1 tab PO DAILY [facility] Stop: 08/14/18 08:59 Last Admin: 06/30/18 08:54 Dose: 1 tab Zolpidem Tartrate (Ambien) 5 mg PO HS PRN PRN Reason: Insomnia Stop: 08/13/18 10:12 Last Admin: 06/29/18 01:47 Dose: 5 mg General: alert HEENT: PERRLA, EOMI Neck: Supple, No JVD, No LAD, other Lungs: CTAB Cardiovascular: RRR, Normal S1, Normal S2, without murmur Abdomen: soft, non-tender, positive bowel sound Extremities: clear Neurological: no change Internal Medicine Assmt/Plan - Assessment Assessment: ACUTE PSYCH DECOMPENSATION 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 HX OF BPH HX OF ETOH-no s/sx of withdrawals - Plan Plan: CONT WITH CURRENT INPT PSYCH SUPPORTIVE CARE AND MGT CONT WITH SYNTHOID-adjusted. CONT WITH ARICEPT/NAMENDA CONT WITH CARDURA/PROSCAR Nutritional Asmnt/Malnutr-PDOC - Dietary Evaluation Malnutrition Findings (Please click <Entered> for more info): Nutritional Asmnt/Malnutrition Start: 06/20/18 15: 10 Text: Status: Complete Freq: Protocol: Document 06/20/18 15:10 [facility] (Rec: 06/20/18 15:17 CONSUELO SHERIE-[email or web address]) Nutritional Asmnt/Malnutrition Patient General Information Nutritional Screening Low Risk Diagnosis pyschosis Pertinent Medical Hx/Surgical Hx PTSD, dementia, ETOH, hypothyroidism, BPH, hyperlipidemia Subjective Information Pt seen in his room with family visiting. pt stated he has good appetite, food is good, no questions. Per EMR, PO intake 75-100%. Current Diet Order/ Nutrition Support regular Pertinent Medications lasix, synthroidm, remeron, theragran Pertinent Labs 06/14 POC 109 Nutritional Hx/Data Height 1.7 m Height (Calculated Centimeters) 170.2 Current Weight (lbs) 70.307 kg Weight (Calculated Kilograms) 70.3 Weight (Calculated Grams) 04317.8 [place] Body Weight 148 Body Mass Index (BMI) 24.3 Weight Status Approriate GI Symptoms GI Symptoms None Last BM 06/18 Difficult in: None Skin Integrity/Comment: laceration to neck gary 21 Current %PO Good (75-100%) Estimated Nutritional Goals BEE in Kcals: Using Current wt Calories/Kcals/Kg 25-30 Kcals Calculated 2742-0740 Protein: Using Current wt Protein g/k Protein Calculated 70 Fluid: ml 1750-2100ml (1ml/kcal) Nutritional Problem No current Nutrition Prob Problem N/A Malnutrition Alert Is there a minimum of two criteria No selected? Query Text:Check all the applicable criteria. A minimum of two criteria are recommended for diagnosis of either severe or non-severe malnutrition. Malnutrition Related to Morbid Obesity Malnutrition related to morbid obesity No Intervention/Recommendation Comments 1. Continue with regular diet as ordered. 2. Monitor PO intake, wt, labs and skin integrity 3. F/U as low risk in 7 days Expected Outcomes/Goals Expected Outcomes/Goals 1. PO intake to meet at least 75% of nutritional needs. 2. Wt stability, skin to remain intact, labs to approach WNL.
--- NOTE | 2018-06-30 13:31 | Progress Notes ---
DATE: 06/30/2018 Case was discussed with staff of the patient, reviewed records. The staff reported being unable to find a placement for him, though I still adjusting his medication and I have increased his Abilify to 10 mg daily, increased his Lexapro to 20 mg daily. He is at a high risk because of his serious suicide attempt. The patient is sleeping well, eating well. His son does not want him to go back home because he felt his stepmother was unable to take care of him. No side effects with the medication, no sedation, no nausea, no extrapyramidal symptoms. I discussed with Dolores that we need to look into to be a nursing facility since he has been unable to successfully finding a place to accept him. We will continue the patient with group therapy, milieu therapy, and adjust medications as needed. JOB# [id number] MTDD
[2018-07-01] MEDS: Levothyroxine 0.05 Mg Tab PO SCH (06:45)
[2018-07-01] MEDS: Multivitamin Tab PO SCH (09:23)
[2018-07-01] MEDS: Aspirin 81mg Chewable Tab PO SCH (09:23)
--- NOTE | 2018-07-01 12:44 | Internal Medicine Prog Note ---
Internal Medicine Subjective - Subjective Service Date: 07/01/18 (comfortable) Patient is:: awake Per staff patient has:: no adverse event Internal Medicine Objective - Results Recent Labs: Laboratory Last Values POC Glucose 109 MG/DL (70 - 105) H 06/14/18 11:22 Triglycerides 82 mg/dL (<150) 06/14/18 11:30 Cholesterol 123 mg/dL (<200) 06/14/18 11:30 LDL Cholesterol Direct 62 mg/dL (75-193) L 06/14/18 11:30 HDL Cholesterol 46 mg/dL (23-92) 06/14/18 11:30 Free T4 0.91 ng/dL (0.82-1.77) 06/14/18 11:30 TSH 4.87 uIU/ml (0.34-5.60) 06/14/18 11:30 - Physical Exam Vitals and I&O: Vital Signs Temp 98.0 F 07/01/18 06:28 Pulse 80 07/01/18 06:28 Resp 18 07/01/18 10:43 BP 120/70 07/01/18 09:23 Pulse Ox 99 07/01/18 06:28 Intake & Output 06/30/18 07/01/18 07/01/18 18:59 06:59 18:59 Intake Total 960 240 Balance 960 240 Intake: Oral 720 240 Other 240 Other: # Voids 4 1 # Bowel Movements 0 Active Medications: Current Medications Acetaminophen (Tylenol) 650 mg PO Q4HR PRN PRN Reason: Mild Pain / Temp above 100 Stop: 08/13/18 10:12 Al Hydrox/Mg Hydrox/Simethicone (Maalox) 30 ml PO Q4HR PRN PRN Reason: GI DISTRESS Stop: 08/13/18 10:12 Aripiprazole (Abilify) 10 mg PO DAILY [facility]; Protocol Stop: 08/27/18 08:59 Last Admin: 07/01/18 09:23 Dose: 10 mg Aspirin (Aspirin Chewable) 81 mg PO DAILY [facility] Stop: 08/14/18 08:59 Last Admin: 07/01/18 09:23 Dose: 81 mg Donepezil HCl (Aricept) 10 mg PO HS [facility] Stop: 08/13/18 20:59 Last Admin: 06/30/18 20:31 Dose: 10 mg Doxazosin Mesylate (Cardura) 8 mg PO HS [facility] Stop: 08/13/18 20:59 Last Admin: 06/30/18 20:34 Dose: Not Given Escitalopram Oxalate (Lexapro) 20 mg PO HS [facility]; Protocol Stop: 08/23/18 20:59 Last Admin: 06/30/18 20:31 Dose: 20 mg Finasteride (Proscar) 5 mg PO DAILY [facility]; Protocol Stop: 08/14/18 08:59 Last Admin: 07/01/18 09:23 Dose: 5 mg Furosemide (Lasix) 20 mg PO DAILY [facility] Stop: 08/14/18 08:59 Last Admin: 07/01/18 09:23 Dose: 20 mg Levothyroxine Sodium (Synthroid) 0.05 mg PO QDAC [facility] Stop: 08/16/18 07:29 Last Admin: 07/01/18 06:45 Dose: 0.05 mg Lorazepam (Ativan) 0.5 mg PO Q4HR PRN; Protocol PRN Reason: Anxiety Stop: 08/13/18 10:21 Last Admin: 06/30/18 18:05 Dose: 0.5 mg Magnesium Hydroxide (Milk Of Magnesia) 30 ml PO HS PRN PRN Reason: Constipation Memantine (Namenda) 10 mg PO BID [facility] Stop: 08/28/18 16:59 Last Admin: 07/01/18 09:23 Dose: 10 mg Mirtazapine (Remeron) 15 mg PO HS [facility] Stop: 08/15/18 20:59 Last Admin: 06/30/18 20:31 Dose: 15 mg Multivitamins/Vitamin C (Theragran) 1 tab PO DAILY [facility] Stop: 08/14/18 08:59 Last Admin: 07/01/18 09:23 Dose: 1 tab Zolpidem Tartrate (Ambien) 5 mg PO HS PRN PRN Reason: Insomnia Stop: 08/13/18 10:12 Last Admin: 06/29/18 01:47 Dose: 5 mg General: alert HEENT: PERRLA, EOMI Neck: Supple, No JVD, No LAD, other Lungs: CTAB Cardiovascular: RRR, Normal S1, Normal S2, without murmur Abdomen: soft, non-tender, positive bowel sound Extremities: clear Neurological: no change Internal Medicine Assmt/Plan - Assessment Assessment: ACUTE PSYCH DECOMPENSATION 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 HX OF BPH HX OF ETOH-no s/sx of withdrawals - Plan Plan: CONT WITH CURRENT INPT PSYCH SUPPORTIVE CARE AND MGT CONT WITH SYNTHOID-adjusted. CONT WITH ARICEPT/NAMENDA CONT WITH CARDURA/PROSCAR Nutritional Asmnt/Malnutr-PDOC - Dietary Evaluation Malnutrition Findings (Please click <Entered> for more info): Nutritional Asmnt/Malnutrition Start: 06/20/18 15: 10 Text: Status: Complete Freq: Protocol: Document 06/20/18 15:10 [facility] (Rec: 06/20/18 15:17 VENKAT REHMAN-[email or web address]) Nutritional Asmnt/Malnutrition Patient General Information Nutritional Screening Low Risk Diagnosis pyschosis Pertinent Medical Hx/Surgical Hx PTSD, dementia, ETOH, hypothyroidism, BPH, hyperlipidemia Subjective Information Pt seen in his room with family visiting. pt stated he has good appetite, food is good, no questions. Per EMR, PO intake 75-100%. Current Diet Order/ Nutrition Support regular Pertinent Medications lasix, synthroidm, remeron, theragran Pertinent Labs 06/14 POC 109 Nutritional Hx/Data Height 1.7 m Height (Calculated Centimeters) 170.2 Current Weight (lbs) 70.307 kg Weight (Calculated Kilograms) 70.3 Weight (Calculated Grams) 26364.8 [place] Body Weight 148 Body Mass Index (BMI) 24.3 Weight Status Approriate GI Symptoms GI Symptoms None Last BM 06/18 Difficult in: None Skin Integrity/Comment: laceration to neck gary 21 Current %PO Good (75-100%) Estimated Nutritional Goals BEE in Kcals: Using Current wt Calories/Kcals/Kg 25-30 Kcals Calculated 3442-6339 Protein: Using Current wt Protein g/k Protein Calculated 70 Fluid: ml 1750-2100ml (1ml/kcal) Nutritional Problem No current Nutrition Prob Problem N/A Malnutrition Alert Is there a minimum of two criteria No selected? Query Text:Check all the applicable criteria. A minimum of two criteria are recommended for diagnosis of either severe or non-severe malnutrition. Malnutrition Related to Morbid Obesity Malnutrition related to morbid obesity No Intervention/Recommendation Comments 1. Continue with regular diet as ordered. 2. Monitor PO intake, wt, labs and skin integrity 3. F/U as low risk in 7 days Expected Outcomes/Goals Expected Outcomes/Goals 1. PO intake to meet at least 75% of nutritional needs. 2. Wt stability, skin to remain intact, labs to approach WNL.
[2018-07-02] MEDS: Levothyroxine 0.05 Mg Tab PO SCH (06:42)
--- NOTE | 2018-07-02 07:49 | Progress Notes ---
DATE: SUBJECTIVE: Chart reviewed and the patient interviewed. Also discussed the patient's condition with the staff and reviewed records and labs. Also, we will try to call the patient's to discuss with her further treatment options. The patient's affect is brighter. The patient denies any intention to harm himself or others and has some guilt feeling about his suicidal attempt. He is motivated and is having guilt feeling about his suicide attempt. Otherwise, the patient denies any side effects of medications. ASSESSMENT: The patient seems to be less depressed. TREATMENT PLAN: Continue Lexapro and also continue Aricept and Abilify and we will continue to follow up closely. JOB# [id number]
[2018-07-02] MEDS: Multivitamin Tab PO SCH (08:48)
[2018-07-02] MEDS: Aspirin 81mg Chewable Tab PO SCH (08:48)
--- NOTE | 2018-07-02 17:41 | General Progress Note ---
Subjective - Review of Systems Service Date: 07/02/18 Subjective: awake, comfortable Objective - Results Recent Labs: Laboratory Last Values POC Glucose 109 MG/DL (70 - 105) H 06/14/18 11:22 Triglycerides 82 mg/dL (<150) 06/14/18 11:30 Cholesterol 123 mg/dL (<200) 06/14/18 11:30 LDL Cholesterol Direct 62 mg/dL (75-193) L 06/14/18 11:30 HDL Cholesterol 46 mg/dL (23-92) 06/14/18 11:30 Free T4 0.91 ng/dL (0.82-1.77) 06/14/18 11:30 TSH 4.87 uIU/ml (0.34-5.60) 06/14/18 11:30 - Physical Exam Vitals and I&O: Vital Signs Temp 98.2 F 07/02/18 14:00 Pulse 60 07/02/18 14:00 Resp 18 07/02/18 14:00 BP 105/67 07/02/18 14:00 Pulse Ox 96 07/02/18 14:00 Intake & Output 07/01/18 07/02/18 07/02/18 18:59 06:59 18:59 Intake Total 1000 240 Balance 1000 240 Intake: Oral 1000 240 Other: # Voids 4 2 # Bowel Movements 0 Active Medications: Current Medications Acetaminophen (Tylenol) 650 mg PO Q4HR PRN PRN Reason: Mild Pain / Temp above 100 Stop: 08/13/18 10:12 Al Hydrox/Mg Hydrox/Simethicone (Maalox) 30 ml PO Q4HR PRN PRN Reason: GI DISTRESS Stop: 08/13/18 10:12 Aripiprazole (Abilify) 10 mg PO DAILY [facility]; Protocol Stop: 08/27/18 08:59 Last Admin: 07/02/18 08:48 Dose: 10 mg Aspirin (Aspirin Chewable) 81 mg PO DAILY [facility] Stop: 08/14/18 08:59 Last Admin: 07/02/18 08:48 Dose: 81 mg Donepezil HCl (Aricept) 10 mg PO HS [facility] Stop: 08/13/18 20:59 Last Admin: 07/01/18 20:44 Dose: 10 mg Doxazosin Mesylate (Cardura) 8 mg PO HS [facility] Stop: 08/13/18 20:59 Last Admin: 07/01/18 20:45 Dose: 8 mg Escitalopram Oxalate (Lexapro) 20 mg PO HS [facility]; Protocol Stop: 08/23/18 20:59 Last Admin: 07/01/18 20:45 Dose: 20 mg Finasteride (Proscar) 5 mg PO DAILY [facility]; Protocol Stop: 08/14/18 08:59 Last Admin: 07/02/18 08:48 Dose: 5 mg Furosemide (Lasix) 20 mg PO DAILY [facility] Stop: 08/14/18 08:59 Last Admin: 07/02/18 08:50 Dose: 20 mg Levothyroxine Sodium (Synthroid) 0.05 mg PO QDAC [facility] Stop: 08/16/18 07:29 Last Admin: 07/02/18 06:42 Dose: 0.05 mg Lorazepam (Ativan) 0.5 mg PO Q4HR PRN; Protocol PRN Reason: Anxiety Stop: 08/13/18 10:21 Last Admin: 07/02/18 02:57 Dose: 0.5 mg Magnesium Hydroxide (Milk Of Magnesia) 30 ml PO HS PRN PRN Reason: Constipation Memantine (Namenda) 10 mg PO BID [facility] Stop: 08/28/18 16:59 Last Admin: 07/02/18 16:39 Dose: 10 mg Mirtazapine (Remeron) 15 mg PO HS [facility] Stop: 08/15/18 20:59 Last Admin: 07/01/18 20:45 Dose: 15 mg Multivitamins/Vitamin C (Theragran) 1 tab PO DAILY [facility] Stop: 08/14/18 08:59 Last Admin: 07/02/18 08:48 Dose: 1 tab Zolpidem Tartrate (Ambien) 5 mg PO HS PRN PRN Reason: Insomnia Stop: 08/13/18 10:12 Last Admin: 07/01/18 20:46 Dose: 5 mg General: Alert, No acute distress HEENT: Atraumatic, Mucous membr. 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 Subclinical Hypothyroid - Plan Plan: Current Medications Acetaminophen (Tylenol) 650 mg PO Q4HR PRN PRN Reason: Mild Pain / Temp above 100 Stop: 08/13/18 10:12 Al Hydrox/Mg Hydrox/Simethicone (Maalox) 30 ml PO Q4HR PRN PRN Reason: GI DISTRESS Stop: 08/13/18 10:12 Aripiprazole (Abilify) 10 mg PO DAILY [facility]; Protocol Stop: 08/27/18 08:59 Last Admin: 07/02/18 08:48 Dose: 10 mg Aspirin (Aspirin Chewable) 81 mg PO DAILY [facility] Stop: 08/14/18 08:59 Last Admin: 07/02/18 08:48 Dose: 81 mg Donepezil HCl (Aricept) 10 mg PO HS [facility] Stop: 08/13/18 20:59 Last Admin: 07/01/18 20:44 Dose: 10 mg Doxazosin Mesylate (Cardura) 8 mg PO HS [facility] Stop: 08/13/18 20:59 Last Admin: 07/01/18 20:45 Dose: 8 mg Escitalopram Oxalate (Lexapro) 20 mg PO HS [facility]; Protocol Stop: 08/23/18 20:59 Last Admin: 07/01/18 20:45 Dose: 20 mg Finasteride (Proscar) 5 mg PO DAILY [facility]; Protocol Stop: 08/14/18 08:59 Last Admin: 07/02/18 08:48 Dose: 5 mg Furosemide (Lasix) 20 mg PO DAILY [facility] Stop: 08/14/18 08:59 Last Admin: 07/02/18 08:50 Dose: 20 mg Levothyroxine Sodium (Synthroid) 0.05 mg PO QDAC [facility] Stop: 08/16/18 07:29 Last Admin: 07/02/18 06:42 Dose: 0.05 mg Lorazepam (Ativan) 0.5 mg PO Q4HR PRN; Protocol PRN Reason: Anxiety Stop: 08/13/18 10:21 Last Admin: 07/02/18 02:57 Dose: 0.5 mg Magnesium Hydroxide (Milk Of Magnesia) 30 ml PO HS PRN PRN Reason: Constipation Memantine (Namenda) 10 mg PO BID [facility] Stop: 08/28/18 16:59 Last Admin: 07/02/18 16:39 Dose: 10 mg Mirtazapine (Remeron) 15 mg PO HS [facility] Stop: 08/15/18 20:59 Last Admin: 07/01/18 20:45 Dose: 15 mg Multivitamins/Vitamin C (Theragran) 1 tab PO DAILY [facility] Stop: 08/14/18 08:59 Last Admin: 07/02/18 08:48 Dose: 1 tab Zolpidem Tartrate (Ambien) 5 mg PO HS PRN PRN Reason: Insomnia Stop: 08/13/18 10:12 Last Admin: 07/01/18 20:46 Dose: 5 mg continue to monitor BP maintain antipscyh meds Nutritional Asmnt/Malnutr-PDOC - Dietary Evaluation Malnutrition Findings (Please click <Entered> for more info): Nutritional Asmnt/Malnutrition Start: 06/20/18 15: 10 Text: Status: Complete Freq: Protocol: Document 06/20/18 15:10 LCCONSUELOG (Rec: 06/20/18 15:17 LCCONSUELOG [email or web address]) Nutritional Asmnt/Malnutrition Patient General Information Nutritional Screening Low Risk Diagnosis pyschosis Pertinent Medical Hx/Surgical Hx PTSD, dementia, ETOH, hypothyroidism, BPH, hyperlipidemia Subjective Information Pt seen in his room with family visiting. pt stated he has good appetite, food is good, no questions. Per EMR, PO intake 75-100%. Current Diet Order/ Nutrition Support regular Pertinent Medications lasix, synthroidm, remeron, theragran Pertinent Labs 06/14 POC 109 Nutritional Hx/Data Height 1.7 m Height (Calculated Centimeters) 170.2 Current Weight (lbs) 70.307 kg Weight (Calculated Kilograms) 70.3 Weight (Calculated Grams) 29750.8 [place] Body Weight 148 Body Mass Index (BMI) 24.3 Weight Status Approriate GI Symptoms GI Symptoms None Last BM 06/18 Difficult in: None Skin Integrity/Comment: laceration to neck gary 21 Current %PO Good (75-100%) Estimated Nutritional Goals BEE in Kcals: Using Current wt Calories/Kcals/Kg 25-30 Kcals Calculated 9122-6152 Protein: Using Current wt Protein g/k Protein Calculated 70 Fluid: ml 1750-2100ml (1ml/kcal) Nutritional Problem No current Nutrition Prob Problem N/A Malnutrition Alert Is there a minimum of two criteria No selected? Query Text:Check all the applicable criteria. A minimum of two criteria are recommended for diagnosis of either severe or non-severe malnutrition. Malnutrition Related to Morbid Obesity Malnutrition related to morbid obesity No Intervention/Recommendation Comments 1. Continue with regular diet as ordered. 2. Monitor PO intake, wt, labs and skin integrity 3. F/U as low risk in 7 days Expected Outcomes/Goals Expected Outcomes/Goals 1. PO intake to meet at least 75% of nutritional needs. 2. Wt stability, skin to remain intact, labs to approach WNL.
--- NOTE | 2018-07-03 05:08 | Progress Notes ---
DATE: 07/02/2018 SUBJECTIVE: Case was discussed with staff of the patient, reviewed records. Also talked to his . She reports she left a message to Dr. Polo and she is waiting for him to call her back. The patient according to Dr. Polo did call his to discuss treatment options. The patient is brighter. He denies any intent to harm himself or anybody, has no idea about what happened. He seems to be less depressed, more involved. No side effects with the medication, no sedation, no nausea and we will continue outpatient group therapy, milieu therapy, and adjust medications as needed. [facility]# [id number]
[2018-07-03] MEDS: Levothyroxine 0.05 Mg Tab PO SCH (06:40)
[2018-07-03] MEDS: Aspirin 81mg Chewable Tab PO SCH (08:40)
[2018-07-03] MEDS: Multivitamin Tab PO SCH (08:40)
--- NOTE | 2018-07-03 10:04 | Progress Notes ---
DATE: 07/03/2018 SUBJECTIVE: This is report about my conversation with the patient's "Sultana" today. I have been trying to get hold of her for the last 3 days, but finally today she did answer the phone. The patient's said that she visited him yesterday and "he looks very good and he is very happy." She added that she is looking forward for him to come home and that he has appointment with his psychiatrist in the [facility], Wednesday, the in the [facility]. His psychiatrist, "Dr. Moore," and that she is going to take him there. She also said that she is feeling comfortable to have him home and "I miss him." Based on that information and also the patient has been denying his suicide thoughts, we will try to discharge the patient tomorrow and follow up as an outpatient with his psychiatrist. [facility]# [id number]
--- NOTE | 2018-07-03 13:53 | General Progress Note ---
Subjective - Review of Systems Service Date: 07/03/18 Subjective: awake, comfortable, verbal Objective - Results Recent Labs: Laboratory Last Values POC Glucose 109 MG/DL (70 - 105) H 06/14/18 11:22 Triglycerides 82 mg/dL (<150) 06/14/18 11:30 Cholesterol 123 mg/dL (<200) 06/14/18 11:30 LDL Cholesterol Direct 62 mg/dL (75-193) L 06/14/18 11:30 HDL Cholesterol 46 mg/dL (23-92) 06/14/18 11:30 Free T4 0.91 ng/dL (0.82-1.77) 06/14/18 11:30 TSH 4.87 uIU/ml (0.34-5.60) 06/14/18 11:30 - Physical Exam Vitals and I&O: Vital Signs Temp 97.3 F 07/03/18 06:25 Pulse 60 07/03/18 06:25 Resp 18 07/03/18 06:25 BP 103/57 07/03/18 08:16 Pulse Ox 98 07/03/18 06:25 Intake & Output 07/02/18 07/03/18 07/03/18 18:59 06:59 18:59 Intake Total 1000 120 Balance 1000 120 Intake: Oral 1000 120 Other: # Voids 3 3 # Bowel Movements 1 Active Medications: Current Medications Acetaminophen (Tylenol) 650 mg PO Q4HR PRN PRN Reason: Mild Pain / Temp above 100 Stop: 08/13/18 10:12 Al Hydrox/Mg Hydrox/Simethicone (Maalox) 30 ml PO Q4HR PRN PRN Reason: GI DISTRESS Stop: 08/13/18 10:12 Aripiprazole (Abilify) 10 mg PO DAILY [facility]; Protocol Stop: 08/27/18 08:59 Last Admin: 07/03/18 08:40 Dose: 10 mg Aspirin (Aspirin Chewable) 81 mg PO DAILY [facility] Stop: 08/14/18 08:59 Last Admin: 07/03/18 08:40 Dose: 81 mg Donepezil HCl (Aricept) 10 mg PO HS [facility] Stop: 08/13/18 20:59 Last Admin: 07/02/18 20:58 Dose: 10 mg Doxazosin Mesylate (Cardura) 8 mg PO HS [facility] Stop: 08/13/18 20:59 Last Admin: 07/02/18 20:58 Dose: 8 mg Escitalopram Oxalate (Lexapro) 20 mg PO HS [facility]; Protocol Stop: 08/23/18 20:59 Last Admin: 07/02/18 20:58 Dose: 20 mg Finasteride (Proscar) 5 mg PO DAILY [facility]; Protocol Stop: 08/14/18 08:59 Last Admin: 07/03/18 08:40 Dose: 5 mg Furosemide (Lasix) 20 mg PO DAILY [facility] Stop: 08/14/18 08:59 Last Admin: 07/03/18 08:16 Dose: Not Given Levothyroxine Sodium (Synthroid) 0.05 mg PO QDAC [facility] Stop: 08/16/18 07:29 Last Admin: 07/03/18 06:40 Dose: 0.05 mg Lorazepam (Ativan) 0.5 mg PO Q4HR PRN; Protocol PRN Reason: Anxiety Stop: 08/13/18 10:21 Last Admin: 07/02/18 02:57 Dose: 0.5 mg Magnesium Hydroxide (Milk Of Magnesia) 30 ml PO HS PRN PRN Reason: Constipation Memantine (Namenda) 10 mg PO BID [facility] Stop: 08/28/18 16:59 Last Admin: 07/03/18 08:40 Dose: 10 mg Mirtazapine (Remeron) 15 mg PO HS [facility] Stop: 08/15/18 20:59 Last Admin: 07/02/18 20:58 Dose: 15 mg Multivitamins/Vitamin C (Theragran) 1 tab PO DAILY [facility] Stop: 08/14/18 08:59 Last Admin: 07/03/18 08:40 Dose: 1 tab Zolpidem Tartrate (Ambien) 5 mg PO HS PRN PRN Reason: Insomnia Stop: 08/13/18 10:12 Last Admin: 07/02/18 20:58 Dose: 5 mg General: Alert, No acute distress HEENT: Atraumatic, Mucous membr. 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 Subclinical Hypothyroid - Plan Plan: Current Medications Acetaminophen (Tylenol) 650 mg PO Q4HR PRN PRN Reason: Mild Pain / Temp above 100 Stop: 08/13/18 10:12 Al Hydrox/Mg Hydrox/Simethicone (Maalox) 30 ml PO Q4HR PRN PRN Reason: GI DISTRESS Stop: 08/13/18 10:12 Aripiprazole (Abilify) 10 mg PO DAILY [facility]; Protocol Stop: 08/27/18 08:59 Last Admin: 07/02/18 08:48 Dose: 10 mg Aspirin (Aspirin Chewable) 81 mg PO DAILY [facility] Stop: 08/14/18 08:59 Last Admin: 07/02/18 08:48 Dose: 81 mg Donepezil HCl (Aricept) 10 mg PO HS [facility] Stop: 08/13/18 20:59 Last Admin: 07/01/18 20:44 Dose: 10 mg Doxazosin Mesylate (Cardura) 8 mg PO HS [facility] Stop: 08/13/18 20:59 Last Admin: 07/01/18 20:45 Dose: 8 mg Escitalopram Oxalate (Lexapro) 20 mg PO HS [facility]; Protocol Stop: 08/23/18 20:59 Last Admin: 07/01/18 20:45 Dose: 20 mg Finasteride (Proscar) 5 mg PO DAILY [facility]; Protocol Stop: 08/14/18 08:59 Last Admin: 07/02/18 08:48 Dose: 5 mg Furosemide (Lasix) 20 mg PO DAILY [facility] Stop: 08/14/18 08:59 Last Admin: 07/02/18 08:50 Dose: 20 mg Levothyroxine Sodium (Synthroid) 0.05 mg PO QDAC [facility] Stop: 08/16/18 07:29 Last Admin: 07/02/18 06:42 Dose: 0.05 mg Lorazepam (Ativan) 0.5 mg PO Q4HR PRN; Protocol PRN Reason: Anxiety Stop: 08/13/18 10:21 Last Admin: 07/02/18 02:57 Dose: 0.5 mg Magnesium Hydroxide (Milk Of Magnesia) 30 ml PO HS PRN PRN Reason: Constipation Memantine (Namenda) 10 mg PO BID [facility] Stop: 08/28/18 16:59 Last Admin: 07/02/18 16:39 Dose: 10 mg Mirtazapine (Remeron) 15 mg PO HS [facility] Stop: 08/15/18 20:59 Last Admin: 07/01/18 20:45 Dose: 15 mg Multivitamins/Vitamin C (Theragran) 1 tab PO DAILY [facility] Stop: 08/14/18 08:59 Last Admin: 07/02/18 08:48 Dose: 1 tab Zolpidem Tartrate (Ambien) 5 mg PO HS PRN PRN Reason: Insomnia Stop: 08/13/18 10:12 Last Admin: 07/01/18 20:46 Dose: 5 mg continue to monitor BP maintain antipscyh meds Nutritional Asmnt/Malnutr-PDOC - Dietary Evaluation Malnutrition Findings (Please click <Entered> for more info): Nutritional Asmnt/Malnutrition Start: 06/20/18 15: 10 Text: Status: Complete Freq: Protocol: Document 06/20/18 15:10 LCCONSUELOG (Rec: 06/20/18 15:17 LCCONSUELOG [email or web address]) Nutritional Asmnt/Malnutrition Patient General Information Nutritional Screening Low Risk Diagnosis pyschosis Pertinent Medical Hx/Surgical Hx PTSD, dementia, ETOH, hypothyroidism, BPH, hyperlipidemia Subjective Information Pt seen in his room with family visiting. pt stated he has good appetite, food is good, no questions. Per EMR, PO intake 75-100%. Current Diet Order/ Nutrition Support regular Pertinent Medications lasix, synthroidm, remeron, theragran Pertinent Labs 06/14 POC 109 Nutritional Hx/Data Height 1.7 m Height (Calculated Centimeters) 170.2 Current Weight (lbs) 70.307 kg Weight (Calculated Kilograms) 70.3 Weight (Calculated Grams) 38698.8 [place] Body Weight 148 Body Mass Index (BMI) 24.3 Weight Status Approriate GI Symptoms GI Symptoms None Last BM 06/18 Difficult in: None Skin Integrity/Comment: laceration to neck gary 21 Current %PO Good (75-100%) Estimated Nutritional Goals BEE in Kcals: Using Current wt Calories/Kcals/Kg 25-30 Kcals Calculated 1186-2669 Protein: Using Current wt Protein g/k Protein Calculated 70 Fluid: ml 1750-2100ml (1ml/kcal) Nutritional Problem No current Nutrition Prob Problem N/A Malnutrition Alert Is there a minimum of two criteria No selected? Query Text:Check all the applicable criteria. A minimum of two criteria are recommended for diagnosis of either severe or non-severe malnutrition. Malnutrition Related to Morbid Obesity Malnutrition related to morbid obesity No Intervention/Recommendation Comments 1. Continue with regular diet as ordered. 2. Monitor PO intake, wt, labs and skin integrity 3. F/U as low risk in 7 days Expected Outcomes/Goals Expected Outcomes/Goals 1. PO intake to meet at least 75% of nutritional needs. 2. Wt stability, skin to remain intact, labs to approach WNL.
--- NOTE | 2018-07-04 02:56 | Progress Notes ---
DATE: 07/03/2018 FOLLOWUP PROGRESS NOTE PROGRESS ON THE UNIT: Case was discussed with staff of the patient, reviewed records. The patient is feeling better. He is sleeping better, eating better. He is compliant with the medication with no side effects. He is more animated, working on placement for this patient, and no side effects with the medication, no sedation, no nausea, no extrapyramidal symptoms. We will continue to work with the patient in group therapy and milieu therapy, adjust the medication as needed. JOB# [id number]
[2018-07-04] MEDS: Levothyroxine 0.05 Mg Tab PO SCH (06:36)
[2018-07-04] MEDS: Multivitamin Tab PO SCH (08:55)
[2018-07-04] MEDS: Aspirin 81mg Chewable Tab PO SCH (08:56)
--- NOTE | 2018-07-04 16:09 | Internal Medicine Prog Note ---
Internal Medicine Subjective - Subjective Service Date: 07/04/18 (NO EVENTS NOTED/REPORTED) Patient is:: awake Per staff patient has:: no adverse event Internal Medicine Objective - Results Recent Labs: Laboratory Last Values POC Glucose 109 MG/DL (70 - 105) H 06/14/18 11:22 Triglycerides 82 mg/dL (<150) 06/14/18 11:30 Cholesterol 123 mg/dL (<200) 06/14/18 11:30 LDL Cholesterol Direct 62 mg/dL (75-193) L 06/14/18 11:30 HDL Cholesterol 46 mg/dL (23-92) 06/14/18 11:30 Free T4 0.91 ng/dL (0.82-1.77) 06/14/18 11:30 TSH 4.87 uIU/ml (0.34-5.60) 06/14/18 11:30 - Physical Exam Vitals and I&O: Vital Signs Temp 97.8 F 07/04/18 15:28 Pulse 67 07/04/18 15:28 Resp 19 07/04/18 15:28 BP 96/64 07/04/18 15:28 Pulse Ox 95 07/04/18 15:28 Intake & Output 07/03/18 07/04/18 07/04/18 18:59 06:59 18:59 Intake Total 240 Balance 240 Intake: Oral 240 Other: # Voids 1 Active Medications: Current Medications Acetaminophen (Tylenol) 650 mg PO Q4HR PRN PRN Reason: Mild Pain / Temp above 100 Stop: 08/13/18 10:12 Al Hydrox/Mg Hydrox/Simethicone (Maalox) 30 ml PO Q4HR PRN PRN Reason: GI DISTRESS Stop: 08/13/18 10:12 Aripiprazole (Abilify) 10 mg PO DAILY [facility]; Protocol Stop: 08/27/18 08:59 Last Admin: 07/04/18 08:55 Dose: 10 mg Aspirin (Aspirin Chewable) 81 mg PO DAILY [facility] Stop: 08/14/18 08:59 Last Admin: 07/04/18 08:56 Dose: 81 mg Donepezil HCl (Aricept) 10 mg PO HS [facility] Stop: 08/13/18 20:59 Last Admin: 07/03/18 20:17 Dose: 10 mg Doxazosin Mesylate (Cardura) 8 mg PO HS [facility] Stop: 08/13/18 20:59 Last Admin: 07/03/18 20:17 Dose: 8 mg Escitalopram Oxalate (Lexapro) 20 mg PO HS [facility]; Protocol Stop: 08/23/18 20:59 Last Admin: 07/03/18 20:16 Dose: 20 mg Finasteride (Proscar) 5 mg PO DAILY [facility]; Protocol Stop: 08/14/18 08:59 Last Admin: 07/04/18 08:55 Dose: 5 mg Furosemide (Lasix) 20 mg PO DAILY [facility] Stop: 08/14/18 08:59 Last Admin: 07/04/18 08:55 Dose: 20 mg Levothyroxine Sodium (Synthroid) 0.05 mg PO QDAC [facility] Stop: 08/16/18 07:29 Last Admin: 07/04/18 06:36 Dose: 0.05 mg Lorazepam (Ativan) 0.5 mg PO Q4HR PRN; Protocol PRN Reason: Anxiety Stop: 08/13/18 10:21 Last Admin: 07/02/18 02:57 Dose: 0.5 mg Magnesium Hydroxide (Milk Of Magnesia) 30 ml PO HS PRN PRN Reason: Constipation Memantine (Namenda) 10 mg PO BID [facility] Stop: 08/28/18 16:59 Last Admin: 07/04/18 08:56 Dose: 10 mg Mirtazapine (Remeron) 15 mg PO HS [facility] Stop: 08/15/18 20:59 Last Admin: 07/03/18 20:18 Dose: 15 mg Multivitamins/Vitamin C (Theragran) 1 tab PO DAILY [facility] Stop: 08/14/18 08:59 Last Admin: 07/04/18 08:55 Dose: 1 tab Zolpidem Tartrate (Ambien) 5 mg PO HS PRN PRN Reason: Insomnia Stop: 08/13/18 10:12 Last Admin: 07/02/18 20:58 Dose: 5 mg General: alert HEENT: PERRLA, EOMI Neck: Supple, No JVD, No LAD, other Lungs: CTAB Cardiovascular: RRR, Normal S1, Normal S2, without murmur Abdomen: soft, non-tender, positive bowel sound Extremities: clear Neurological: no change Internal Medicine Assmt/Plan - Assessment Assessment: ACUTE PSYCH DECOMPENSATION 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 HX OF BPH HX OF ETOH-no s/sx of withdrawals - Plan Plan: CONT WITH CURRENT INPT PSYCH SUPPORTIVE CARE AND MGT CONT WITH SYNTHOID-adjusted. CONT WITH ARICEPT/NAMENDA CONT WITH CARDURA/PROSCAR Nutritional Asmnt/Malnutr-PDOC - Dietary Evaluation Malnutrition Findings (Please click <Entered> for more info): Nutritional Asmnt/Malnutrition Start: 06/20/18 15: 10 Text: Status: Complete Freq: Protocol: Document 06/20/18 15:10 LCCONSUELOG (Rec: 06/20/18 15:17 CONSUELO [email or web address]) Nutritional Asmnt/Malnutrition Patient General Information Nutritional Screening Low Risk Diagnosis pyschosis Pertinent Medical Hx/Surgical Hx PTSD, dementia, ETOH, hypothyroidism, BPH, hyperlipidemia Subjective Information Pt seen in his room with family visiting. pt stated he has good appetite, food is good, no questions. Per EMR, PO intake 75-100%. Current Diet Order/ Nutrition Support regular Pertinent Medications lasix, synthroidm, remeron, theragran Pertinent Labs 06/14 POC 109 Nutritional Hx/Data Height 1.7 m Height (Calculated Centimeters) 170.2 Current Weight (lbs) 70.307 kg Weight (Calculated Kilograms) 70.3 Weight (Calculated Grams) 89252.8 [place] Body Weight 148 Body Mass Index (BMI) 24.3 Weight Status Approriate GI Symptoms GI Symptoms None Last BM 06/18 Difficult in: None Skin Integrity/Comment: laceration to neck gary 21 Current %PO Good (75-100%) Estimated Nutritional Goals BEE in Kcals: Using Current wt Calories/Kcals/Kg 25-30 Kcals Calculated 9334-5664 Protein: Using Current wt Protein g/k Protein Calculated 70 Fluid: ml 1750-2100ml (1ml/kcal) Nutritional Problem No current Nutrition Prob Problem N/A Malnutrition Alert Is there a minimum of two criteria No selected? Query Text:Check all the applicable criteria. A minimum of two criteria are recommended for diagnosis of either severe or non-severe malnutrition. Malnutrition Related to Morbid Obesity Malnutrition related to morbid obesity No Intervention/Recommendation Comments 1. Continue with regular diet as ordered. 2. Monitor PO intake, wt, labs and skin integrity 3. F/U as low risk in 7 days Expected Outcomes/Goals Expected Outcomes/Goals 1. PO intake to meet at least 75% of nutritional needs. 2. Wt stability, skin to remain intact, labs to approach WNL.
--- NOTE | 2018-07-05 00:18 | Progress Notes ---
DATE: 07/04/2018 SUBJECTIVE: Case was discussed with staff of the patient, reviewed records. The patient is out of the room. He is in the dining room, feeding himself. He is in good mood. He is sleeping well, eating well. He reported no current intent to harm himself or anybody. He is tearful, animated. Working on discharge plan, waiting for placement for him. We will continue to work with the patient in group therapy, milieu therapy, and adjust medication as needed. JOB# [id number]
[2018-07-05] MEDS: Levothyroxine 0.05 Mg Tab PO SCH (07:00)
[2018-07-05] MEDS: Aspirin 81mg Chewable Tab PO SCH (09:06)
[2018-07-05] MEDS: Multivitamin Tab PO SCH (09:06)
--- NOTE | 2018-07-05 09:56 | Internal Medicine Prog Note ---
Internal Medicine Subjective - Subjective Service Date: 07/05/18 (no events) Patient seen and examined:: without staff Patient is:: awake Per staff patient has:: no adverse event Internal Medicine Objective - Results Recent Labs: Laboratory Last Values POC Glucose 109 MG/DL (70 - 105) H 06/14/18 11:22 Triglycerides 82 mg/dL (<150) 06/14/18 11:30 Cholesterol 123 mg/dL (<200) 06/14/18 11:30 LDL Cholesterol Direct 62 mg/dL (75-193) L 06/14/18 11:30 HDL Cholesterol 46 mg/dL (23-92) 06/14/18 11:30 Free T4 0.91 ng/dL (0.82-1.77) 06/14/18 11:30 TSH 4.87 uIU/ml (0.34-5.60) 06/14/18 11:30 - Physical Exam Vitals and I&O: Vital Signs Temp 97.6 F 07/05/18 07:10 Pulse 51 07/05/18 07:10 Resp 18 07/05/18 07:10 BP 112/62 07/05/18 07:10 Pulse Ox 95 07/05/18 07:10 Intake & Output 07/04/18 07/05/18 07/05/18 18:59 06:59 18:59 Intake Total 950 120 Balance 950 120 Intake: Oral 950 120 Other: # Voids 4 2 # Bowel Movements 1 0 Active Medications: Current Medications Acetaminophen (Tylenol) 650 mg PO Q4HR PRN PRN Reason: Mild Pain / Temp above 100 Stop: 08/13/18 10:12 Al Hydrox/Mg Hydrox/Simethicone (Maalox) 30 ml PO Q4HR PRN PRN Reason: GI DISTRESS Stop: 08/13/18 10:12 Aripiprazole (Abilify) 10 mg PO DAILY [facility]; Protocol Stop: 08/27/18 08:59 Last Admin: 07/05/18 09:05 Dose: 10 mg Aspirin (Aspirin Chewable) 81 mg PO DAILY [facility] Stop: 08/14/18 08:59 Last Admin: 07/05/18 09:06 Dose: 81 mg Donepezil HCl (Aricept) 10 mg PO HS [facility] Stop: 08/13/18 20:59 Last Admin: 04/08/19 21:25 Dose: 10 mg Doxazosin Mesylate (Cardura) 8 mg PO HS [facility] Stop: 08/13/18 20:59 Last Admin: 07/04/18 21:25 Dose: 8 mg Escitalopram Oxalate (Lexapro) 20 mg PO HS [facility]; Protocol Stop: 08/23/18 20:59 Last Admin: 07/04/18 21:26 Dose: 20 mg Finasteride (Proscar) 5 mg PO DAILY [facility]; Protocol Stop: 08/14/18 08:59 Last Admin: 07/05/18 09:06 Dose: 5 mg Furosemide (Lasix) 20 mg PO DAILY [facility] Stop: 08/14/18 08:59 Last Admin: 07/05/18 09:06 Dose: 20 mg Levothyroxine Sodium (Synthroid) 0.05 mg PO QDAC [facility] Stop: 08/16/18 07:29 Last Admin: 07/05/18 07:00 Dose: 0.05 mg Lorazepam (Ativan) 0.5 mg PO Q4HR PRN; Protocol PRN Reason: Anxiety Stop: 08/13/18 10:21 Last Admin: 07/05/18 04:57 Dose: 0.5 mg Magnesium Hydroxide (Milk Of Magnesia) 30 ml PO HS PRN PRN Reason: Constipation Memantine (Namenda) 10 mg PO BID [facility] Stop: 08/28/18 16:59 Last Admin: 07/05/18 09:06 Dose: 10 mg Mirtazapine (Remeron) 15 mg PO HS [facility] Stop: 08/15/18 20:59 Last Admin: 07/04/18 21:26 Dose: 15 mg Multivitamins/Vitamin C (Theragran) 1 tab PO DAILY [facility] Stop: 08/14/18 08:59 Last Admin: 07/05/18 09:06 Dose: 1 tab Zolpidem Tartrate (Ambien) 5 mg PO HS PRN PRN Reason: Insomnia Stop: 08/13/18 10:12 Last Admin: 07/04/18 21:26 Dose: 5 mg General: alert HEENT: PERRLA, EOMI Neck: Supple, No JVD, No LAD, other Lungs: CTAB Cardiovascular: RRR, Normal S1, Normal S2, without murmur Abdomen: soft, non-tender, positive bowel sound Extremities: clear Neurological: no change Internal Medicine Assmt/Plan - Assessment Assessment: ACUTE PSYCH DECOMPENSATION 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 HX OF BPH HX OF ETOH-no s/sx of withdrawals - Plan Plan: CONT WITH CURRENT INPT PSYCH SUPPORTIVE CARE AND MGT CONT WITH SYNTHOID-adjusted. CONT WITH ARICEPT/NAMENDA CONT WITH CARDURA/PROSCAR Nutritional Asmnt/Malnutr-PDOC - Dietary Evaluation Malnutrition Findings (Please click <Entered> for more info): Nutritional Asmnt/Malnutrition Start: 06/20/18 15: 10 Text: Status: Complete Freq: Protocol: Document 06/20/18 15:10 [facility] (Rec: 06/20/18 15:[email or web address] Nutritional Asmnt/Malnutrition Patient General Information Nutritional Screening Low Risk Diagnosis pyschosis Pertinent Medical Hx/Surgical Hx PTSD, dementia, ETOH, hypothyroidism, BPH, hyperlipidemia Subjective Information Pt seen in his room with family visiting. pt stated he has good appetite, food is good, no questions. Per EMR, PO intake 75-100%. Current Diet Order/ Nutrition Support regular Pertinent Medications lasix, synthroidm, remeron, theragran Pertinent Labs 06/14 POC 109 Nutritional Hx/Data Height 1.7 m Height (Calculated Centimeters) 170.2 Current Weight (lbs) 70.307 kg Weight (Calculated Kilograms) 70.3 Weight (Calculated Grams) 34836.8 [place] Body Weight 148 Body Mass Index (BMI) 24.3 Weight Status Approriate GI Symptoms GI Symptoms None Last BM 06/18 Difficult in: None Skin Integrity/Comment: laceration to neck gary 21 Current %PO Good (75-100%) Estimated Nutritional Goals BEE in Kcals: Using Current wt Calories/Kcals/Kg 25-30 Kcals Calculated 8218-1298 Protein: Using Current wt Protein g/k Protein Calculated 70 Fluid: ml 1750-2100ml (1ml/kcal) Nutritional Problem No current Nutrition Prob Problem N/A Malnutrition Alert Is there a minimum of two criteria No selected? Query Text:Check all the applicable criteria. A minimum of two criteria are recommended for diagnosis of either severe or non-severe malnutrition. Malnutrition Related to Morbid Obesity Malnutrition related to morbid obesity No Intervention/Recommendation Comments 1. Continue with regular diet as ordered. 2. Monitor PO intake, wt, labs and skin integrity 3. F/U as low risk in 7 days Expected Outcomes/Goals Expected Outcomes/Goals 1. PO intake to meet at least 75% of nutritional needs. 2. Wt stability, skin to remain intact, labs to approach WNL.
--- NOTE | 2018-07-06 00:21 | Progress Notes ---
DATE: 07/05/2018 SUBJECTIVE: Case was discussed with staff of the patient, reviewed records. The patient continues to show progress. Sleeping better, eating better. He has no memory of what he did, try to cut his throat. He denies any current intent to harm himself or anybody; however, he is unreliable, trying to get him to a nursing facility and so far they have been unable to find him a place [facility] We will continue the patient in group therapy, milieu therapy, and adjust medication as needed. JOB# [id number]
[2018-07-06] MEDS: Levothyroxine 0.05 Mg Tab PO SCH (06:33)
--- NOTE | 2018-07-06 07:58 | Discharge Summary ---
DATE OF DISCHARGE: 07/06/2018 PSYCHIATRIC DISCHARGE SUMMARY PATIENT'S AGE: 82. SEX: Male. PHYSICIAN: Charlie Polo MD, MPH FINAL DIAGNOSIS: PRIMARY DIAGNOSIS: Major depression, severe, recurrent, without psychotic features. REASON FOR HOSPITALIZATION: The patient was admitted to the hospital because of suicidal attempt by cutting his throat with a knife that required stitches. HOSPITAL COURSE: The patient continued to be severely depressed. The patient also was feeling hopeless. The patient had guilt feeling about his suicidal attempt. The patient was given Abilify in the dose of 10 mg every day and also continued to take Aricept to 10 mg every day. The patient had no issues with memory at that time while in the hospital. He also was given Lexapro and the dose adjusted to 20 mg at bedtime. Gradually, the patient's affect was brighter. The patient was less depressed. Also, was interacting more with peers and with others. He denied any intention to harm himself or others. Placement was an issue and in the beginning, it was felt that the patient will need more intensive care treatment, but at the same time, the patient was not suicidal or homicidal. I spoke with the patient's who wanted the patient back home and she felt that he is much improved and that he is not suicidal and that the family will be monitoring him. Also told me that she has appointments for the patient to see [facility]. Since the patient was not suicidal or homicidal. The patient was discharged from the hospital. MENTAL STATUS EXAM UPON DISCHARGE: The patient was cooperative. His affect was brighter. The patient was interacting appropriately. Also, was clean. His thought processes were goal directed. He denies any hallucinations or delusions and he denied any suicidal or homicidal ideations. The patient is alert and oriented to time, place, person and situation. His short term and recent memory were intact. ASSESSMENT: The patient is not suicidal or homicidal. PLAN: Planning to discharge the patient today, and outpatient treatment and follow up will continue with his psychiatrist in the [facility]. DISCHARGE MEDICATIONS: Abilify 10 mg every day, Lexapro 20 mg at bedtime, Aricept 10 mg at bedtime, Namenda 10 mg twice a day, Remeron 50 mg at bedtime. Prescription of his psych medications for 2 weeks with 1 refill was given to the patient upon discharge. EXPECTED OUTCOME AFTER DISCHARGE: Fair if the patient continues to take his psych medications and follow up with discharge plans. [facility]# [id number]
[2018-07-06] MEDS: Aspirin 81mg Chewable Tab PO SCH (09:05)
[2018-07-06] MEDS: Multivitamin Tab PO SCH (09:06)
--- NOTE | 2018-07-06 09:20 | Internal Medicine Prog Note ---
Internal Medicine Subjective - Subjective Service Date: 07/06/18 (NO EVENTS) Patient seen and examined:: without staff Patient is:: awake Per staff patient has:: no adverse event Internal Medicine Objective - Results Recent Labs: Laboratory Last Values POC Glucose 109 MG/DL (70 - 105) H 06/14/18 11:22 Triglycerides 82 mg/dL (<150) 06/14/18 11:30 Cholesterol 123 mg/dL (<200) 06/14/18 11:30 LDL Cholesterol Direct 62 mg/dL (75-193) L 06/14/18 11:30 HDL Cholesterol 46 mg/dL (23-92) 06/14/18 11:30 Free T4 0.91 ng/dL (0.82-1.77) 06/14/18 11:30 TSH 4.87 uIU/ml (0.34-5.60) 06/14/18 11:30 - Physical Exam Vitals and I&O: Vital Signs Temp 97.1 F 07/06/18 06:46 Pulse 50 07/06/18 06:46 Resp 20 07/06/18 06:46 BP 108/61 07/06/18 09:03 Pulse Ox 100 07/06/18 06:46 Intake & Output 07/05/18 07/06/18 07/06/18 18:59 06:59 18:59 Intake Total 1500 120 Balance 1500 120 Intake: Oral 1500 120 Other: # Voids 3 2 # Bowel Movements 0 0 Active Medications: Current Medications Acetaminophen (Tylenol) 650 mg PO Q4HR PRN PRN Reason: Mild Pain / Temp above 100 Stop: 08/13/18 10:12 Last Admin: 07/05/18 13:01 Dose: 650 mg Al Hydrox/Mg Hydrox/Simethicone (Maalox) 30 ml PO Q4HR PRN PRN Reason: GI DISTRESS Stop: 08/13/18 10:12 Aripiprazole (Abilify) 10 mg PO DAILY [facility]; Protocol Stop: 08/27/18 08:59 Last Admin: 07/06/18 09:05 Dose: 10 mg Aspirin (Aspirin Chewable) 81 mg PO DAILY [facility] Stop: 08/14/18 08:59 Last Admin: 07/06/18 09:05 Dose: 81 mg Donepezil HCl (Aricept) 10 mg PO HS [facility] Stop: 08/13/18 20:59 Last Admin: 07/05/18 21:27 Dose: 10 mg Doxazosin Mesylate (Cardura) 8 mg PO HS [facility] Stop: 08/13/18 20:59 Last Admin: 07/05/18 21:27 Dose: 8 mg Escitalopram Oxalate (Lexapro) 20 mg PO HS [facility]; Protocol Stop: 08/23/18 20:59 Last Admin: 07/05/18 21:26 Dose: 20 mg Finasteride (Proscar) 5 mg PO DAILY [facility]; Protocol Stop: 08/14/18 08:59 Last Admin: 07/06/18 09:06 Dose: 5 mg Furosemide (Lasix) 20 mg PO DAILY [facility] Stop: 08/14/18 08:59 Last Admin: 07/06/18 09:03 Dose: Not Given Levothyroxine Sodium (Synthroid) 0.05 mg PO QDAC [facility] Stop: 08/16/18 07:29 Last Admin: 07/06/18 06:33 Dose: 0.05 mg Lorazepam (Ativan) 0.5 mg PO Q4HR PRN; Protocol PRN Reason: Anxiety Stop: 08/13/18 10:21 Last Admin: 07/05/18 13:00 Dose: 0.5 mg Magnesium Hydroxide (Milk Of Magnesia) 30 ml PO HS PRN PRN Reason: Constipation Memantine (Namenda) 10 mg PO BID [facility] Stop: 08/28/18 16:59 Last Admin: 07/06/18 09:06 Dose: 10 mg Mirtazapine (Remeron) 15 mg PO HS [facility] Stop: 08/15/18 20:59 Last Admin: 07/05/18 21:27 Dose: 15 mg Multivitamins/Vitamin C (Theragran) 1 tab PO DAILY [facility] Stop: 08/14/18 08:59 Last Admin: 07/06/18 09:06 Dose: 1 tab Zolpidem Tartrate (Ambien) 5 mg PO HS PRN PRN Reason: Insomnia Stop: 08/13/18 10:12 Last Admin: 07/04/18 21:26 Dose: 5 mg General: alert HEENT: PERRLA, EOMI Neck: Supple, No JVD, No LAD, other Lungs: CTAB Cardiovascular: RRR, Normal S1, Normal S2, without murmur Abdomen: soft, non-tender, positive bowel sound Extremities: clear Neurological: no change Internal Medicine Assmt/Plan - Assessment Assessment: ACUTE PSYCH DECOMPENSATION 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 HX OF BPH HX OF ETOH-no s/sx of withdrawals - Plan Plan: CONT WITH CURRENT INPT PSYCH SUPPORTIVE CARE AND MGT CONT WITH SYNTHOID-adjusted. CONT WITH ARICEPT/NAMENDA CONT WITH CARDURA/PROSCAR Nutritional Asmnt/Malnutr-PDOC - Dietary Evaluation Malnutrition Findings (Please click <Entered> for more info): Nutritional Asmnt/Malnutrition Start: 06/20/18 15: 10 Text: Status: Complete Freq: Protocol: Document 06/20/18 15:10 [facility] (Rec: 06/20/18 15:17 [email or web address]) Nutritional Asmnt/Malnutrition Patient General Information Nutritional Screening Low Risk Diagnosis pyschosis Pertinent Medical Hx/Surgical Hx PTSD, dementia, ETOH, hypothyroidism, BPH, hyperlipidemia Subjective Information Pt seen in his room with family visiting. pt stated he has good appetite, food is good, no questions. Per EMR, PO intake 75-100%. Current Diet Order/ Nutrition Support regular Pertinent Medications lasix, synthroidm, remeron, theragran Pertinent Labs 06/14 POC 109 Nutritional Hx/Data Height 1.7 m Height (Calculated Centimeters) 170.2 Current Weight (lbs) 70.307 kg Weight (Calculated Kilograms) 70.3 Weight (Calculated Grams) 10427.8 [place] Body Weight 148 Body Mass Index (BMI) 24.3 Weight Status Approriate GI Symptoms GI Symptoms None Last BM 06/18 Difficult in: None Skin Integrity/Comment: laceration to neck gary 21 Current %PO Good (75-100%) Estimated Nutritional Goals BEE in Kcals: Using Current wt Calories/Kcals/Kg 25-30 Kcals Calculated 7080-0704 Protein: Using Current wt Protein g/k Protein Calculated 70 Fluid: ml 1750-2100ml (1ml/kcal) Nutritional Problem No current Nutrition Prob Problem N/A Malnutrition Alert Is there a minimum of two criteria No selected? Query Text:Check all the applicable criteria. A minimum of two criteria are recommended for diagnosis of either severe or non-severe malnutrition. Malnutrition Related to Morbid Obesity Malnutrition related to morbid obesity No Intervention/Recommendation Comments 1. Continue with regular diet as ordered. 2. Monitor PO intake, wt, labs and skin integrity 3. F/U as low risk in 7 days Expected Outcomes/Goals Expected Outcomes/Goals 1. PO intake to meet at least 75% of nutritional needs. 2. Wt stability, skin to remain intact, labs to approach WNL.
== END 2018-07-06 16:43 | disposition home or self-care (01) | DRG 876 ==
LOC: GERO2 09:20 → GERO 06-15 17:56
PROVIDERS: ADMIT Psychiatry & Neurology Psychiatry; ATTEND Psychiatry & Neurology Psychiatry
PROC: 0WQ6XZZ Repair Neck, External Approach (ICD-10-PCS; principal; 2018-06-14)
DX: F33.2 Major depressive disorder, recurrent severe without psychotic features (principal); F02.81 Dementia in other diseases classified elsewhere, unspecified severity, with behavioral disturbance; R45.851 Suicidal ideations; G30.9 Alzheimer's disease, unspecified; F43.12 Post-traumatic stress disorder, chronic; E02 Subclinical iodine-deficiency hypothyroidism; S11.91XA Laceration without foreign body of unspecified part of neck, initial encounter; E78.5 Hyperlipidemia, unspecified; N40.0 Benign prostatic hyperplasia without lower urinary tract symptoms; I10 Essential (primary) hypertension; Z87.891 Personal history of nicotine dependence; Z79.899 Other long term (current) drug therapy; Y29.XXXA Contact with blunt object, undetermined intent, initial encounter; Y93.89 Activity, other specified; Y92.89 Other specified places as the place of occurrence of the external cause; Y99.8 Other external cause status; Z23 Encounter for immunization
CPT/HCPCS: 36415-UA; 80061-TC; 82948-90; 83036-90; 84436-TC; 84439-90; 84443-TC; 90732; G0410; Z7610